=== PATIENT | female | born 1965 | race African-American/Black ===

== ENCOUNTER 2018-02-12 14:11 | Emergency (ER) | payer MEDICAID ==
[~2018-02-12] VITALS: Ht 167.6 cm; Wt 150.0 kg
[~2018-02-12 14:11] MED LIST: FURO40TA5 PO; LISI-186 PO; METF500T4 PO; METO25TA6 PO; SIMV20TA6 PO
[2018-02-12] MEDS ORDERED: KETOROLAC 60MG/2ML VIAL IM STA (14:32)
[2018-02-12 15:19] LABS: CLARITY URINE CLEAR (CLEAR); COLOR URINE YELLOW (YELLOW); KETONES URINE TRACE (NEGATIVE); LEUKOCYTE ESTERASE URINE TRACE (NEGATIVE); NITRITE URINE NEGATIVE (NEGATIVE); OCCULT BLOOD URINE NEGATIVE (NEGATIVE); PH URINE 5.5 (4.5-8.0); PROTEIN URINE 2+ (NEGATIVE); SPECIFIC GRAVITY URINE 1.018 (1.005-1.030)
[2018-02-12 18:40] VITALS: BP 128/85
== END 2018-02-12 18:59 | disposition home or self-care (01) ==
LOC: ER 14:27
DX: N12 Tubulo-interstitial nephritis, not specified as acute or chronic (principal); I50.9 Heart failure, unspecified; E11.9 Type 2 diabetes mellitus without complications; J45.909 Unspecified asthma, uncomplicated; Z90.49 Acquired absence of other specified parts of digestive tract; Z98.890 Other specified postprocedural states
CPT/HCPCS: 71045; 74176; 81003; 81025; 96372; 99285; J1885; Z7610

== ENCOUNTER 2018-11-09 18:59 | Inpatient (IN) | payer MEDICAID ==
[~2018-11-09] VITALS: Ht 167.6 cm; Wt 152.9 kg
[~2018-11-09 18:59] MED LIST changes: +METF-414 PO; -METF500T4 PO
[2018-11-09] MEDS ORDERED: METHYLPREDNISOLONE SOD SUCC 125 MG/2 ML VIAL IV STA (19:08)
[2018-11-09] MEDS ORDERED: ALBUTEROL (0.083%) 2.5MG/3ML NEB HHN STA (19:08)
[2018-11-09] MEDS ORDERED: MAGNESIUM 2 G PREMIX 50 ML IV STA (19:08)
[2018-11-09] MEDS ORDERED: IPRATROPIUM BROMIDE (0.02%) 0.5MG/2.5ML NEB HHN STA (19:08)
[2018-11-09] MEDS ORDERED: METHYLPREDNISOLONE SOD SUCC 125 MG/2 ML VIAL ONE (19:15)
[2018-11-09] MEDS ORDERED: MAGNESIUM 1 G PREMIX 100 ML IV ONE ×2 (19:18→21:45)
[2018-11-09] MEDS ORDERED: FUROSEMIDE 20MG/2ML VIAL IVP ONE (20:00)
[2018-11-09 20:35] LABS: BASOPHILS % 0.5 % (0.0-2.0); EOSINOPHILS % 1.2 % (0.0-5.0); HEMATOCRIT. 46.7 % (36.0-48.0); HEMOGLOBIN. 15.2 g/dL (12.0-16.0); LYMPHOCYTES % 21.2 % (20.0-50.0); MEAN CORPUSCULAR HEMOGLOBIN 29.1 pg (28.0-32.0); MEAN CORPUSCULAR VOLUME 88.9 fL (81.0-99.0); MONOCYTES % 8.1 % (2.0-8.0); PLATELET 182 x1000/uL (130-400); RED BLOOD CELL COUNT 5.25 mill/uL (4.2-5.4); RED CELL DISTRIBUTION WIDTH 17.1 % (11.6-14.6)
[2018-11-09 20:39] LABS: CHLORIDE 102 mEq/L (98-107)
[2018-11-09 20:40] LABS: BG BASE EXCESS 5.1 mmol/L (-2.0-2.0); BG BILEVEL POS AIRWAY PRESSURE 15/5; BG CARBOXYHEMOGLOBIN 5.9 % (0.5-1.5); BG DEOXYHEMOGLOBIN 4.4 % (0.0-5.0); BG FRACTION INSPIRED OXYGEN 40; BG METHEMOGLOBIN 0.4 % (0.0-1.5); BG OXYGEN SATURATION 95.3 % (92.0-98.5); BG OXYHEMOGLOBIN 89.3 % (94.0-97.0); BG PH 7.245 (7.350-7.450); BG PO2 86.5 mmHg (75.0-100.0); BG SAMPLE SITE RIGHT RADIAL; BG TOTAL HEMOGLOBIN 15.7 g/dL (12.0-18.0); BG VENT MODE MASK - BIPAP; BG VENT RATE 14 set
[2018-11-09 20:41] LABS: INR 1.1; PARTIAL THROMBOPLASTIN TIME 27.4 sec (23.4-31.0); PROTHROMBIN TIME 10.8 sec (9.1-11.1)
[2018-11-09 22:28] LABS: CLARITY URINE CLEAR (CLEAR); COLOR URINE YELLOW (YELLOW); KETONES URINE NEGATIVE (NEGATIVE); LEUKOCYTE ESTERASE URINE NEGATIVE (NEGATIVE); NITRITE URINE NEGATIVE (NEGATIVE); OCCULT BLOOD URINE NEGATIVE (NEGATIVE); PH URINE 5.5 (4.5-8.0); PROTEIN URINE 2+ (NEGATIVE); SPECIFIC GRAVITY URINE 1.008 (1.005-1.030); UROBILINOGEN URINE 0.2 E.U./dL (0.2-1.0)
[2018-11-09 22:38] LABS: BG BASE EXCESS 4.8 mmol/L (-2.0-2.0); BG BILEVEL POS AIRWAY PRESSURE 18/5; BG CARBOXYHEMOGLOBIN 5.1 % (0.5-1.5); BG DEOXYHEMOGLOBIN 6.3 % (0.0-5.0); BG FRACTION INSPIRED OXYGEN 40; BG HCO3 ACT 36.2 mmol/L (22.0-26.0); BG METHEMOGLOBIN 0.3 % (0.0-1.5); BG OXYGEN SATURATION 93.3 % (92.0-98.5); BG OXYHEMOGLOBIN 88.3 % (94.0-97.0); BG PCO2 86.5 mmHg (35.0-45.0); BG PH 7.239 (7.350-7.450); BG PO2 74.9 mmHg (75.0-100.0); BG SAMPLE SITE RIGHT RADIAL; BG TOTAL HEMOGLOBIN 16.6 g/dL (12.0-18.0); BG VENT MODE MASK - BIPAP; BG VENT RATE 14 set
[2018-11-10 01:45] LABS: BG BASE EXCESS 2.8 mmol/L (-2.0-2.0); BG BILEVEL POS AIRWAY PRESSURE 18/5; BG CARBOXYHEMOGLOBIN 4.2 % (0.5-1.5); BG DEOXYHEMOGLOBIN 4.1 % (0.0-5.0); BG FRACTION INSPIRED OXYGEN 40; BG HCO3 ACT 33.2 mmol/L (22.0-26.0); BG METHEMOGLOBIN 0.2 % (0.0-1.5); BG OXYGEN SATURATION 95.7 % (92.0-98.5); BG OXYHEMOGLOBIN 91.5 % (94.0-97.0); BG PCO2 77.9 mmHg (35.0-45.0); BG PH 7.247 (7.350-7.450); BG PO2 88.6 mmHg (75.0-100.0); BG SAMPLE SITE RIGHT RADIAL; BG TOTAL HEMOGLOBIN 16.4 g/dL (12.0-18.0); BG VENT MODE MASK - BIPAP; BG VENT RATE 20 set
[2018-11-10] MEDS ORDERED: IPRATROPIUM/ALBUTEROL 0.5-3(2.5)MG/3ML NEB HHN PRN (08:30)
[2018-11-10] MEDS: FUROSEMIDE 20MG/2ML VIAL IVP SCH ×2 (09:00→12:00)
[2018-11-10] MEDS ORDERED: METHYLPREDNISOLONE SOD SUCC 40 MG/ML VIAL IV SCH (10:00)
[2018-11-10] MEDS: METHYLPREDNISOLONE SOD SUCC 125 MG/2 ML VIAL IV SCH ×2 (10:00→18:53)
[2018-11-10] MEDS ORDERED: IPRATROPIUM/ALBUTEROL 0.5-3(2.5)MG/3ML NEB HHN SCH (12:00)
[2018-11-10] MEDS ORDERED: DEXTROSE 50% WATER 50ML SYRINGE IV PRN (13:45)
[2018-11-10] MEDS ORDERED: CLONIDINE 0.1MG TABLET PO PRN (13:45)
[2018-11-10] MEDS: LOSARTAN POTASSIUM 50 MG TABLET PO SCH (15:21)
[2018-11-10 16:59] LABS: T4 FREE 0.92 ng/dL (0.76-1.46)
[2018-11-10] MEDS: BLOOD SUGAR DIAGNOSTIC STRIP TEST SCH ×2 (20:34→23:00)
[2018-11-10] MEDS: INSULIN LISPRO 100 UNITS/ML SUBCUT SCH ×2 (21:30→23:10)
[2018-11-10 22:00] VITALS: BP 141/79
[2018-11-10] MEDS ORDERED: HYDROCODONE/ACETAMINOPHEN 5/325MG TABLET PO PRN (23:15)
[2018-11-10] MEDS ORDERED: ZOLPIDEM TARTRATE 5MG TABLET PO PRN (23:15)
[2018-11-10 23:32] VITALS: BP 141/79
[2018-11-10] MEDS: ENOXAPARIN 30MG/0.3ML SYR SUBCUT SCH (23:39)
[2018-11-11] VITALS (10 sets, daily range): BP systolic 128–160; BP diastolic 69–97
[2018-11-11] MEDS: METHYLPREDNISOLONE SOD SUCC 125 MG/2 ML VIAL IV SCH ×2 (01:25→10:34)
[2018-11-11] MEDS: BLOOD SUGAR DIAGNOSTIC STRIP TEST SCH ×2 (06:18→11:50)
[2018-11-11 06:50] LABS: CHLORIDE 103 mEq/L (98-107)
[2018-11-11 07:51] LABS: HEMATOCRIT. 47.5 % (36.0-48.0); HEMOGLOBIN. 15.2 g/dL (12.0-16.0); MEAN CORPUSCULAR HEMOGLOBIN 28.6 pg (28.0-32.0); MEAN CORPUSCULAR VOLUME 89.4 fL (81.0-99.0); MEAN PLATELET VOLUME 9.8 fl (7.4-10.4); PLATELET 211 x1000/uL (130-400); RED BLOOD CELL COUNT 5.32 mill/uL (4.2-5.4); RED CELL DISTRIBUTION WIDTH 17.4 % (11.6-14.6)
[2018-11-11] MEDS: LOSARTAN POTASSIUM 50 MG TABLET PO SCH (08:20)
[2018-11-11] MEDS: ENOXAPARIN 30MG/0.3ML SYR SUBCUT SCH (08:20)
[2018-11-11] MEDS: INSULIN LISPRO 100 UNITS/ML SUBCUT SCH ×2 (08:21→12:29)
[2018-11-11] MEDS ORDERED: NICOTINE 21MG PATCH TD SCH (09:00)
[2018-11-11 10:22] LABS: PLATELET ESTIMATE NORMAL
[2018-11-11 11:25] LABS: BG BASE EXCESS 8.2 mmol/L (-2.0-2.0); BG CARBOXYHEMOGLOBIN 1.1 % (0.5-1.5); BG DEOXYHEMOGLOBIN 4.4 % (0.0-5.0); BG FRACTION INSPIRED OXYGEN 28; BG HCO3 ACT 36.8 mmol/L (22.0-26.0); BG METHEMOGLOBIN 0.1 % (0.0-1.5); BG OXYGEN SATURATION 95.5 % (92.0-98.5); BG OXYHEMOGLOBIN 94.4 % (94.0-97.0); BG PCO2 67.8 mmHg (35.0-45.0); BG PH 7.352 (7.350-7.450); BG PO2 81.7 mmHg (75.0-100.0); BG SAMPLE SITE RIGHT RADIAL; BG TOTAL HEMOGLOBIN 15.8 g/dL (12.0-18.0); BG VENT MODE MASK - VENTI
[2018-11-11] MEDS ORDERED: PROMETHAZINE/DEXTROMETHORPHAN 6.25-15MG/5ML BOTTLE 120ML PO PRN (14:15)
[2018-11-11] MEDS ORDERED: FLUTICASONE PROPIONATE 50MCG/SPRAY BOTTLE BOTHNSTRLS SCH (21:00)
== END 2018-11-11 16:45 | disposition home or self-care (01) | DRG 133 ==
LOC: ER 18:59 → EDBEDREQ 19:22 → EDBEDREQTM 20:39 → EDBEDREQSVC 23:08 → CANBEDREQ 11-10 10:01 → EDBEDREQSVC 11-10 14:39 → ENRESERV 11-10 17:35 → CANRESERV 11-10 17:35 → EDBEDREQSVC 11-10 18:38 → 3WST 11-10 20:18 → CANRESERV 11-10 21:30 → ENRESERV 11-10 21:30
PROVIDERS: ADMIT Internal Medicine; ATTEND Internal Medicine
PROC: 5A09357 Assistance with Respiratory Ventilation, Less than 24 Consecutive Hours, Continuous Positive Airway Pressure (ICD-10-PCS; principal; 2018-11-09)
DX: J96.21 Acute and chronic respiratory failure with hypoxia (principal); I50.43 Acute on chronic combined systolic (congestive) and diastolic (congestive) heart failure; E87.2 Acidosis; E44.1 Mild protein-calorie malnutrition; E66.01 Morbid (severe) obesity due to excess calories; I07.1 Rheumatic tricuspid insufficiency; I27.20 Pulmonary hypertension, unspecified; J44.1 Chronic obstructive pulmonary disease with (acute) exacerbation; E11.9 Type 2 diabetes mellitus without complications; I11.0 Hypertensive heart disease with heart failure; E89.0 Postprocedural hypothyroidism; F17.210 Nicotine dependence, cigarettes, uncomplicated; I25.10 Atherosclerotic heart disease of native coronary artery without angina pectoris; I42.9 Cardiomyopathy, unspecified; J96.22 Acute and chronic respiratory failure with hypercapnia; K80.20 Calculus of gallbladder without cholecystitis without obstruction; Z71.3 Dietary counseling and surveillance; J45.901 Unspecified asthma with (acute) exacerbation; Z68.43 Body mass index [BMI] 50.0-59.9, adult; Z79.4 Long term (current) use of insulin
CPT/HCPCS: 36415; 36600; 71045; 80048; 80061; 82375; 82805; 82962; 83605; 83880; 84145; 84439; 84443; 84481; 84484; 87077; 93005; 93306; 94640; 94660; 96365; 96375; 96376; 99291; J1650; J1815; J1940; J2930; J3475; J7611; J7620

== ENCOUNTER 2019-03-04 20:24 | Emergency (ER) | payer MEDICAID ==
[~2019-03-04] VITALS: Ht 170.2 cm; Wt 110.0 kg
[2019-03-04] MEDS: ALBUTEROL (0.083%) 2.5MG/3ML NEB HHN SCH (01:05)
[2019-03-04] MEDS ORDERED: IPRATROPIUM BROMIDE (0.02%) 0.5MG/2.5ML NEB HHN STA (22:17)
[2019-03-04] MEDS ORDERED: METHYLPREDNISOLONE SOD SUCC 125 MG/2 ML VIAL IV STA (22:17)
[2019-03-04] MEDS ORDERED: FUROSEMIDE 40MG/4ML VIAL IV ONE (22:30)
[2019-03-04] MEDS ORDERED: ASPIRIN 81MG TABLET PO ONE (22:30)
[2019-03-04] MEDS ORDERED: MAGNESIUM 2 G PREMIX 50 ML IV ONE (22:30)
[2019-03-04 23:47] LABS: BASOPHILS % 0.7 % (0.0-2.0); EOSINOPHILS % 1.2 % (0.0-5.0); HEMATOCRIT. 50.4 % (36.0-48.0); HEMOGLOBIN. 16.5 g/dL (12.0-16.0); LYMPHOCYTES % 27.7 % (20.0-50.0); MEAN CORPUSCULAR HEMOGLOBIN 28.5 pg (28.0-32.0); MEAN CORPUSCULAR VOLUME 87.2 fL (81.0-99.0); MEAN PLATELET VOLUME 9.2 fl (7.4-10.4); MONOCYTES % 9.5 % (2.0-8.0); NEUTROPHILS % 60.9 % (40.0-76.0); PLATELET 185 x1000/uL (130-400); RED BLOOD CELL COUNT 5.78 mill/uL (4.2-5.4); RED CELL DISTRIBUTION WIDTH 16.7 % (11.6-14.6)
[2019-03-04 23:52] LABS: CHLORIDE 102 mEq/L (98-107)
[2019-03-05] MEDS: ALBUTEROL (0.083%) 2.5MG/3ML NEB HHN SCH (00:05)
[2019-03-05] MEDS ORDERED: METOPROLOL TARTRATE 25MG TABLET PO ONE (02:00)
[2019-03-05 02:23] VITALS: BP 182/90
== END 2019-03-05 02:35 | disposition home or self-care (01) ==
LOC: ER 20:24
DX: J44.1 Chronic obstructive pulmonary disease with (acute) exacerbation (principal); I10 Essential (primary) hypertension; I11.0 Hypertensive heart disease with heart failure; I50.9 Heart failure, unspecified; E11.9 Type 2 diabetes mellitus without complications; F17.200 Nicotine dependence, unspecified, uncomplicated; Z98.890 Other specified postprocedural states; Z90.49 Acquired absence of other specified parts of digestive tract; Z79.899 Other long term (current) drug therapy
CPT/HCPCS: 36415; 71045; 80053; 82962; 83880; 84484; 85025; 93005; 94640; 96365; 96366; 96375; 99285; J1940; J2930; J3475; J7611; Z7610

== ENCOUNTER 2019-09-03 10:47 | Emergency (ER) | payer MEDICAID ==
[~2019-09-03] VITALS: Ht 162.6 cm; Wt 136.0 kg
[2019-09-03 13:25] LABS: CLARITY URINE CLEAR (CLEAR); COLOR URINE YELLOW (YELLOW); KETONES URINE NEGATIVE (NEGATIVE); LEUKOCYTE ESTERASE URINE 1+ (NEGATIVE); NITRITE URINE NEGATIVE (NEGATIVE); OCCULT BLOOD URINE NEGATIVE (NEGATIVE); PH URINE 6.5 (4.5-8.0); PROTEIN URINE NEGATIVE (NEGATIVE); SPECIFIC GRAVITY URINE 1.011 (1.005-1.030); UROBILINOGEN URINE 0.2 E.U./dL (0.2-1.0)
[2019-09-03 13:35] LABS: BASOPHILS % 1.2 % (0.0-2.0); EOSINOPHILS % 1.5 % (0.0-5.0); HEMOGLOBIN. 13.5 g/dL (12.0-16.0); MEAN CORPUSCULAR HEMOGLOBIN 29.7 pg (28.0-32.0); MEAN CORPUSCULAR VOLUME 88.1 fL (81.0-99.0); MEAN PLATELET VOLUME 8.7 fl (7.4-10.4); MONOCYTES % 13.4 % (2.0-8.0); NEUTROPHILS % 66.9 % (40.0-76.0); PLATELET 193 x1000/uL (130-400); RED BLOOD CELL COUNT 4.53 mill/uL (4.2-5.4); RED CELL DISTRIBUTION WIDTH 14.4 % (11.6-14.6)
[2019-09-03 13:42] LABS: CHLORIDE 105 mEq/L (98-107)
[2019-09-03 13:45] LABS: PROTHROMBIN TIME 10.1 sec (9.6-11.0)
[2019-09-03 13:46] LABS: ETHANOL BLOOD < 10 mg/dL
[2019-09-03] MEDS ORDERED: SODIUM CHLORIDE 0.9% 500 ML IV ONE (14:45)
[2019-09-03] MEDS ORDERED: KETOROLAC 30MG/ML VIAL IV NR (14:45)
[2019-09-03] MEDS ORDERED: ONDANSETRON HCL 4MG/2ML INJ IV NR (14:45)
[2019-09-03 16:22] LABS: *AMPHETAMINES SCREEN URINE NEGATIVE (NEGATIVE); *BARBITURATES SCREEN URINE NEGATIVE (NEGATIVE); *BENZODIAZEPINES SCREEN URINE NEGATIVE (NEGATIVE); *COCAINE SCREEN URINE NEGATIVE (NEGATIVE); METHADONE URINE SCREEN NEGATIVE (NEGATIVE)
[2019-09-03 16:23] LABS: CANNABINOID URINE SCREEN NEGATIVE (NEGATIVE); OPIATES URINE SCREEN NEGATIVE (NEGATIVE); PHENCYCLIDINE URINE SCREEN NEGATIVE (NEGATIVE)
[2019-09-03 17:15] VITALS: BP 131/61
== END 2019-09-03 17:00 | disposition home or self-care (01) ==
LOC: ER 10:47
DX: R10.9 Unspecified abdominal pain (principal); K59.00 Constipation, unspecified; J06.9 Acute upper respiratory infection, unspecified; E11.9 Type 2 diabetes mellitus without complications; I11.0 Hypertensive heart disease with heart failure; I50.9 Heart failure, unspecified; J44.9 Chronic obstructive pulmonary disease, unspecified; F17.200 Nicotine dependence, unspecified, uncomplicated; Z79.899 Other long term (current) drug therapy; Z90.49 Acquired absence of other specified parts of digestive tract
CPT/HCPCS: 36415; 71045; 74176; 80053; 80305; 80320; 81003; 83690; 83880; 84484; 85025; 85610; 96374; 96375; 99284; J1885; J2405; J7040; G0480

== ENCOUNTER 2019-11-11 12:00 | Emergency (ER) | payer MEDICAID, OTHER ==
[~2019-11-11] VITALS: Ht 170.2 cm; Wt 136.0 kg
[~2019-11-11 12:00] MED LIST changes: +SIMV-43 PO; -SIMV20TA6 PO
[2019-11-11] MEDS ORDERED: ACETAMINOPHEN 325MG TABLET PO ONE (12:45)
[2019-11-11] MEDS ORDERED: IPRATROPIUM BROMIDE (0.02%) 0.5MG/2.5ML NEB HHN STA (13:03)
[2019-11-11] MEDS ORDERED: PREDNISONE 20MG TABLET PO STA (13:03)
[2019-11-11] MEDS ORDERED: ALBUTEROL (0.083%) 2.5MG/3ML NEB HHN STA (13:03)
[2019-11-11 14:19] VITALS: BP 109/42
== END 2019-11-11 14:24 | disposition home or self-care (01) ==
LOC: ER 12:00
DX: J44.1 Chronic obstructive pulmonary disease with (acute) exacerbation (principal); B34.9 Viral infection, unspecified; I11.0 Hypertensive heart disease with heart failure; I50.9 Heart failure, unspecified; Z90.49 Acquired absence of other specified parts of digestive tract
CPT/HCPCS: 71045; 81025; 94640; 99283; J7512; J7610; Z7610

== ENCOUNTER 2021-03-27 19:16 | Inpatient (IN) | payer MEDICAID, OTHER ==
[~2021-03-27] VITALS: Ht 167.6 cm; Wt 149.7 kg
[~2021-03-27 19:16] MED LIST changes: +FURO80TA87 MT; +POTA20TA82 MT
[2021-03-27] MEDS ORDERED: ALBUTEROL (0.083%) 2.5MG/3ML NEB HHN STA (19:38)
[2021-03-27] MEDS ORDERED: PREDNISONE 20MG TABLET PO STA (19:38)
[2021-03-27] MEDS ORDERED: IPRATROPIUM BROMIDE (0.02%) 0.5MG/2.5ML NEB HHN STA (19:38)
[2021-03-27] MEDS ORDERED: FUROSEMIDE 40MG/4ML VIAL IVP ONE (19:45)
[2021-03-27 21:55] LABS: EOSINOPHILS % 1.1 % (0.0-5.0); HEMATOCRIT. 53.7 % (36.0-48.0); HEMOGLOBIN. 17.6 g/dL (12.0-16.0); LYMPHOCYTES % 29.5 % (20.0-50.0); MEAN CORPUSCULAR HEMOGLOBIN 29.1 pg (28.0-32.0); MEAN CORPUSCULAR VOLUME 88.7 fL (81.0-99.0); MEAN PLATELET VOLUME 8.9 fl (7.4-10.4); MONOCYTES % 11.2 % (2.0-8.0); NEUTROPHILS % 57.2 % (40.0-76.0); PLATELET 155 x1000/uL (130-400); RED BLOOD CELL COUNT 6.05 mill/uL (4.2-5.4); RED CELL DISTRIBUTION WIDTH 18.3 % (11.6-14.6)
[2021-03-27 22:02] LABS: CHLORIDE 101 mEq/L (98-107)
[2021-03-28] VITALS (7 sets, daily range): BP systolic 115–136; BP diastolic 61–91
[2021-03-28] MEDS ORDERED: CARVEDILOL 3.125 MG TABLET PO SCH (09:00)
[2021-03-28] MEDS ORDERED: LISINOPRIL 2.5MG TABLET PO SCH (09:00)
[2021-03-28] MEDS: HYDROCODONE/ACETAMINOPHEN 5/325MG TABLET PO PRN ×2 (09:36→18:18)
[2021-03-28] MEDS ORDERED: FUROSEMIDE 40MG/4ML VIAL IVP SCH (10:15)
[2021-03-28 11:47] LABS: *AMPHETAMINES SCREEN URINE NEGATIVE (NEGATIVE); *BARBITURATES SCREEN URINE NEGATIVE (NEGATIVE); *BENZODIAZEPINES SCREEN URINE NEGATIVE (NEGATIVE); *COCAINE SCREEN URINE NEGATIVE (NEGATIVE); METHADONE URINE SCREEN NEGATIVE (NEGATIVE)
[2021-03-28 11:48] LABS: CANNABINOID URINE SCREEN NEGATIVE (NEGATIVE); OPIATES URINE SCREEN NEGATIVE (NEGATIVE); PHENCYCLIDINE URINE SCREEN NEGATIVE (NEGATIVE)
[2021-03-28] MEDS: DILTIAZEM HCL 60MG TABLET PO SCH ×2 (14:52→21:31)
[2021-03-28] MEDS: FUROSEMIDE 40MG/4ML VIAL IVP SCH (18:18)
[2021-03-29] VITALS (58 sets, daily range): BP systolic 85–174; BP diastolic 59–109
[2021-03-29] MEDS: DILTIAZEM HCL 60MG TABLET PO SCH ×3 (05:32→22:22)
[2021-03-29] MEDS: IPRATROPIUM/ALBUTEROL 0.5-3(2.5)MG/3ML NEB HHN SCH ×4 (05:35→20:10)
[2021-03-29 06:40] LABS: CHLORIDE 101 mEq/L (98-107)
[2021-03-29] MEDS ORDERED: IPRATROPIUM/ALBUTEROL 0.5-3(2.5)MG/3ML NEB HHN PRN (08:00)
[2021-03-29] MEDS ORDERED: VECURONIUM BROMIDE 10 MG/VIAL IV ONE (08:22)
[2021-03-29] MEDS ORDERED: ETOMIDATE 2MG/ML 10ML VIAL IV ONE (08:22)
[2021-03-29] MEDS ORDERED: SODIUM CHLORIDE 0.9% 10ML VIAL ONE (08:22)
[2021-03-29] MEDS: BUDESONIDE 0.5MG/2ML NEB HHN SCH ×2 (08:49→20:10)
[2021-03-29] MEDS: FUROSEMIDE 40MG/4ML VIAL IVP SCH ×2 (09:16→17:07)
[2021-03-29 09:27] LABS: BG BASE EXCESS 4.4 mmol/L (-2.0-2.0); BG DEOXYHEMOGLOBIN 20.4 % (0.0-5.0); BG FRACTION INSPIRED OXYGEN 50; BG HCO3 ACT 43.2 mmol/L (22.0-26.0); BG METHEMOGLOBIN 0.4 % (0.0-1.5); BG OXYGEN SATURATION 78.9 % (92.0-98.5); BG OXYHEMOGLOBIN 76.2 % (94.0-97.0); BG PCO2 159.6 mmHg (35.0-45.0); BG PO2 52.2 mmHg (75.0-100.0); BG SAMPLE SITE RIGHT RADIAL; BG TOTAL HEMOGLOBIN 19.3 g/dL (12.0-18.0); BG VENT MODE MASK - BIPAP
[2021-03-29 09:46] LABS: BG BASE EXCESS 6.1 mmol/L (-2.0-2.0); BG CARBOXYHEMOGLOBIN 2.2 % (0.5-1.5); BG DEOXYHEMOGLOBIN 1.8 % (0.0-5.0); BG FRACTION INSPIRED OXYGEN 100; BG HCO3 ACT 44.8 mmol/L (22.0-26.0); BG METHEMOGLOBIN 0.7 % (0.0-1.5); BG OXYGEN SATURATION 98.1 % (92.0-98.5); BG OXYHEMOGLOBIN 95.3 % (94.0-97.0); BG PCO2 156.4 mmHg (35.0-45.0); BG PH 7.075 (7.350-7.450); BG SAMPLE SITE RIGHT RADIAL; BG TOTAL HEMOGLOBIN 19.5 g/dL (12.0-18.0); BG VENT MODE MASK - BIPAP
[2021-03-29] MEDS: METHYLPREDNISOLONE SOD SUCC 40 MG/ML VIAL IV SCH ×2 (10:44→17:07)
[2021-03-29] MEDS: PROPOFOL 10MG/ML 100ML 100 ML IV PRN ×4 (11:25→21:13)
[2021-03-29] MEDS ORDERED: NOREPINEPHRINE 8MG/250ML PMX 250 ML IV PRN (11:30)
[2021-03-29 11:57] LABS: INR 1.1; PROTHROMBIN TIME 11.5 sec (9.6-11.0)
[2021-03-29 12:02] LABS: BG BASE EXCESS 8.1 mmol/L (-2.0-2.0); BG CARBOXYHEMOGLOBIN 2.4 % (0.5-1.5); BG DEOXYHEMOGLOBIN 10.5 % (0.0-5.0); BG FRACTION INSPIRED OXYGEN 40; BG HCO3 ACT 37.2 mmol/L (22.0-26.0); BG METHEMOGLOBIN 0.3 % (0.0-1.5); BG OXYGEN SATURATION 89.2 % (92.0-98.5); BG OXYHEMOGLOBIN 86.8 % (94.0-97.0); BG PCO2 68.8 mmHg (35.0-45.0); BG PH 7.351 (7.350-7.450); BG PO2 51.4 mmHg (75.0-100.0); BG SAMPLE SITE RIGHT RADIAL; BG VENT MODE VENT - AC
[2021-03-29] MEDS ORDERED: NOREPINEPHRINE 8 MG in DEXTROSE 5% WATER 250 ML IV PRN (12:30)
[2021-03-29] MEDS: FENTANYL CITRATE/PF 2,500 MCG in SODIUM CHLORIDE 0.9% 200 ML IV PRN (17:33)
[2021-03-30] VITALS (91 sets, daily range): BP systolic 92–141; BP diastolic 42–88
[2021-03-30] MEDS: IPRATROPIUM/ALBUTEROL 0.5-3(2.5)MG/3ML NEB HHN SCH ×7 (00:14→20:02)
[2021-03-30] MEDS: PROPOFOL 10MG/ML 100ML 100 ML IV PRN ×9 (01:08→23:58)
[2021-03-30] MEDS: METHYLPREDNISOLONE SOD SUCC 40 MG/ML VIAL IV SCH ×2 (03:06→08:14)
[2021-03-30 04:51] LABS: BASOPHILS % 0.1 % (0.0-2.0); HEMATOCRIT. 51.9 % (36.0-48.0); LYMPHOCYTES % 8.1 % (20.0-50.0); MEAN CORPUSCULAR VOLUME 85.8 fL (81.0-99.0); MEAN PLATELET VOLUME 9.7 fl (7.4-10.4); MONOCYTES % 8.7 % (2.0-8.0); NEUTROPHILS % 83.1 % (40.0-76.0); PLATELET 154 x1000/uL (130-400); RED BLOOD CELL COUNT 6.05 mill/uL (4.2-5.4); RED CELL DISTRIBUTION WIDTH 17.2 % (11.6-14.6)
[2021-03-30 04:52] LABS: CHLORIDE 102 mEq/L (98-107)
[2021-03-30] MEDS: DILTIAZEM HCL 60MG TABLET PO SCH ×3 (05:53→21:38)
[2021-03-30] MEDS: FUROSEMIDE 40MG/4ML VIAL IVP SCH ×2 (08:14→17:07)
[2021-03-30] MEDS: BUDESONIDE 0.5MG/2ML NEB HHN SCH ×2 (08:22→20:02)
[2021-03-30 08:32] LABS: BG CARBOXYHEMOGLOBIN 0.6 % (0.5-1.5); BG DEOXYHEMOGLOBIN 10.2 % (0.0-5.0); BG FRACTION INSPIRED OXYGEN 70; BG HCO3 ACT 35.3 mmol/L (22.0-26.0); BG METHEMOGLOBIN 0.3 % (0.0-1.5); BG OXYGEN SATURATION 89.7 % (92.0-98.5); BG OXYHEMOGLOBIN 88.9 % (94.0-97.0); BG PCO2 36.2 mmHg (35.0-45.0); BG PH 7.607 (7.350-7.450); BG PO2 48.4 mmHg (75.0-100.0); BG SAMPLE SITE RIGHT RADIAL; BG TOTAL HEMOGLOBIN 18.1 g/dL (12.0-18.0); BG VENT MODE VENT - AC
[2021-03-30 09:58] LABS: BG BASE EXCESS 10.7 mmol/L (-2.0-2.0); BG CARBOXYHEMOGLOBIN 0.7 % (0.5-1.5); BG DEOXYHEMOGLOBIN 10.7 % (0.0-5.0); BG HCO3 ACT 34.8 mmol/L (22.0-26.0); BG METHEMOGLOBIN 0.2 % (0.0-1.5); BG OXYGEN SATURATION 89.2 % (92.0-98.5); BG OXYHEMOGLOBIN 88.4 % (94.0-97.0); BG PCO2 42.8 mmHg (35.0-45.0); BG PH 7.528 (7.350-7.450); BG PO2 51.4 mmHg (75.0-100.0); BG SAMPLE SITE RIGHT RADIAL; BG VENT MODE VENT - AC
[2021-03-30] MEDS: ACETYLCYSTEINE 100MG/ML 10% VIAL 4ML INH SCH (16:19)
[2021-03-30] MEDS: METHYLPREDNISOLONE SOD SUCC 125 MG/2 ML VIAL IV SCH ×2 (17:08→23:50)
[2021-03-30] MEDS: PANTOPRAZOLE SODIUM 40 MG/VIAL IV SCH (21:37)
[2021-03-31] VITALS (99 sets, daily range): BP systolic 58–144; BP diastolic 37–121
[2021-03-31] MEDS: IPRATROPIUM/ALBUTEROL 0.5-3(2.5)MG/3ML NEB HHN SCH ×5 (00:19→20:27)
[2021-03-31] MEDS: ACETYLCYSTEINE 100MG/ML 10% VIAL 4ML INH SCH (00:19)
[2021-03-31 06:03] LABS: HEMATOCRIT. 53.3 % (36.0-48.0); HEMOGLOBIN. 17.3 g/dL (12.0-16.0); MEAN CORPUSCULAR HEMOGLOBIN 27.7 pg (28.0-32.0); MEAN CORPUSCULAR VOLUME 85.6 fL (81.0-99.0); MEAN PLATELET VOLUME 9.2 fl (7.4-10.4); PLATELET 146 x1000/uL (130-400); RED BLOOD CELL COUNT 6.23 mill/uL (4.2-5.4); RED CELL DISTRIBUTION WIDTH 17.8 % (11.6-14.6)
[2021-03-31 06:04] LABS: CHLORIDE 101 mEq/L (98-107)
[2021-03-31] MEDS: DILTIAZEM HCL 60MG TABLET PO SCH ×2 (06:07→13:51)
[2021-03-31] MEDS: METHYLPREDNISOLONE SOD SUCC 125 MG/2 ML VIAL IV SCH ×4 (06:08→23:33)
[2021-03-31] MEDS: PROPOFOL 10MG/ML 100ML 100 ML IV PRN ×6 (06:08→23:25)
[2021-03-31] MEDS: BUDESONIDE 0.5MG/2ML NEB HHN SCH ×2 (07:55→20:27)
[2021-03-31] MEDS ORDERED: INSULIN LISPRO 100 UNITS/ML SUBCUT SCH (08:20)
[2021-03-31] MEDS ORDERED: DEXTROSE 50% WATER 50ML SYRINGE IV PRN (08:30)
[2021-03-31] MEDS: FUROSEMIDE 40MG/4ML VIAL IVP SCH (08:40)
[2021-03-31] MEDS: PANTOPRAZOLE SODIUM 40 MG/VIAL IV SCH ×2 (08:40→20:35)
[2021-03-31 08:46] LABS: BG BASE EXCESS 10.6 mmol/L (-2.0-2.0); BG CARBOXYHEMOGLOBIN 0.5 % (0.5-1.5); BG DEOXYHEMOGLOBIN 12.5 % (0.0-5.0); BG FRACTION INSPIRED OXYGEN 40; BG HCO3 ACT 35.7 mmol/L (22.0-26.0); BG METHEMOGLOBIN 0.5 % (0.0-1.5); BG OXYGEN SATURATION 87.4 % (92.0-98.5); BG OXYHEMOGLOBIN 86.5 % (94.0-97.0); BG PH 7.499 (7.350-7.450); BG PO2 49.8 mmHg (75.0-100.0); BG SAMPLE SITE RIGHT RADIAL; BG TOTAL HEMOGLOBIN 18.4 g/dL (12.0-18.0); BG VENT MODE VENT - AC
[2021-03-31] MEDS ORDERED: POTASSIUM CHLORIDE 20MEQ/PACKET PO SCH (09:00)
[2021-03-31] MEDS: FENTANYL CITRATE/PF 2,500 MCG in SODIUM CHLORIDE 0.9% 200 ML IV PRN (10:36)
[2021-03-31 12:08] LABS: BG BASE EXCESS 9.2 mmol/L (-2.0-2.0); BG CARBOXYHEMOGLOBIN 0.2 % (0.5-1.5); BG DEOXYHEMOGLOBIN 10.9 % (0.0-5.0); BG FRACTION INSPIRED OXYGEN 50; BG HCO3 ACT 35.2 mmol/L (22.0-26.0); BG METHEMOGLOBIN 0.2 % (0.0-1.5); BG OXYGEN SATURATION 89.1 % (92.0-98.5); BG OXYHEMOGLOBIN 88.7 % (94.0-97.0); BG PH 7.457 (7.350-7.450); BG SAMPLE SITE RIGHT RADIAL; BG TOTAL HEMOGLOBIN 18.4 g/dL (12.0-18.0); BG VENT MODE VENT - AC
[2021-03-31] MEDS: BLOOD SUGAR DIAGNOSTIC STRIP TEST SCH ×3 (12:15→23:37)
[2021-03-31] MEDS: INSULIN LISPRO 100 UNITS/ML SUBCUT SCH ×3 (12:34→23:33)
[2021-03-31] MEDS: ENOXAPARIN 40MG/0.4ML SYR SUBCUT SCH ×2 (12:36→20:34)
[2021-03-31 13:33] LABS: PLATELET ESTIMATE NORMAL
[2021-04-01] VITALS (94 sets, daily range): BP systolic 101–149; BP diastolic 35–113
[2021-04-01] MEDS: IPRATROPIUM/ALBUTEROL 0.5-3(2.5)MG/3ML NEB HHN SCH ×7 (00:08→23:46)
[2021-04-01] MEDS: PROPOFOL 10MG/ML 100ML 100 ML IV PRN ×4 (02:59→12:20)
[2021-04-01] MEDS: METHYLPREDNISOLONE SOD SUCC 125 MG/2 ML VIAL IV SCH ×3 (05:53→17:20)
[2021-04-01] MEDS: INSULIN LISPRO 100 UNITS/ML SUBCUT SCH ×3 (05:56→17:21)
[2021-04-01] MEDS: BLOOD SUGAR DIAGNOSTIC STRIP TEST SCH ×3 (05:58→17:17)
[2021-04-01] MEDS: BUDESONIDE 0.5MG/2ML NEB HHN SCH (08:02)
[2021-04-01 08:35] LABS: BG BASE EXCESS 8.9 mmol/L (-2.0-2.0); BG CARBOXYHEMOGLOBIN 0.3 % (0.5-1.5); BG DEOXYHEMOGLOBIN 11.3 % (0.0-5.0); BG FRACTION INSPIRED OXYGEN 50; BG HCO3 ACT 33.2 mmol/L (22.0-26.0); BG METHEMOGLOBIN 0.4 % (0.0-1.5); BG OXYGEN SATURATION 88.6 % (92.0-98.5); BG PCO2 42.6 mmHg (35.0-45.0); BG PH 7.509 (7.350-7.450); BG PO2 53.4 mmHg (75.0-100.0); BG SAMPLE SITE RIGHT RADIAL; BG TOTAL HEMOGLOBIN 19.5 g/dL (12.0-18.0); BG VENT MODE VENT - AC
[2021-04-01 08:40] LABS: CHLORIDE 104 mEq/L (98-107)
[2021-04-01 08:45] LABS: HEMATOCRIT. 54.6 % (36.0-48.0); HEMOGLOBIN. 18.1 g/dL (12.0-16.0); MEAN CORPUSCULAR HEMOGLOBIN 28.7 pg (28.0-32.0); MEAN CORPUSCULAR VOLUME 86.4 fL (81.0-99.0); MEAN PLATELET VOLUME 9.4 fl (7.4-10.4); PLATELET 120 x1000/uL (130-400); RED BLOOD CELL COUNT 6.32 mill/uL (4.2-5.4); RED CELL DISTRIBUTION WIDTH 17.9 % (11.6-14.6)
[2021-04-01] MEDS: LACTULOSE 20G/30ML UDC PO PRN ×2 (09:12→15:28)
[2021-04-01] MEDS: ENOXAPARIN 40MG/0.4ML SYR SUBCUT SCH (09:12)
[2021-04-01] MEDS: PANTOPRAZOLE SODIUM 40 MG/VIAL IV SCH ×2 (09:12→21:43)
[2021-04-01] MEDS: FUROSEMIDE 40MG/4ML VIAL IVP SCH (09:12)
[2021-04-01] MEDS: AMLODIPINE 5MG TABLET PO SCH ×2 (09:14→16:56)
[2021-04-01] MEDS ORDERED: ALTEPLASE 2MG/VIAL ITC NR (10:30)
[2021-04-01] MEDS ORDERED: PROPOFOL 10MG/ML 100ML 100 ML IV PRN (13:00)
[2021-04-01 13:51] LABS: PLATELET ESTIMATE SLIGHTLY DECREASED
[2021-04-01] MEDS: MIDAZOLAM HCL 100 MG in SODIUM CHLORIDE 0.9% 80 ML IV PRN (18:01)
[2021-04-01] MEDS: FENTANYL CITRATE/PF 2,500 MCG in SODIUM CHLORIDE 0.9% 200 ML IV PRN (18:02)
[2021-04-01] MEDS: ENOXAPARIN 150MG/ML SYR SUBCUT SCH (21:43)
[2021-04-02] VITALS (100 sets, daily range): BP systolic 110–161; BP diastolic 32–121
[2021-04-02] MEDS: BLOOD SUGAR DIAGNOSTIC STRIP TEST SCH ×4 (00:41→17:14)
[2021-04-02] MEDS: INSULIN LISPRO 100 UNITS/ML SUBCUT SCH ×4 (00:49→17:23)
[2021-04-02] MEDS: METHYLPREDNISOLONE SOD SUCC 125 MG/2 ML VIAL IV SCH ×4 (00:51→17:22)
[2021-04-02] MEDS: MIDAZOLAM HCL 100 MG in SODIUM CHLORIDE 0.9% 80 ML IV PRN ×3 (01:26→23:44)
[2021-04-02] MEDS: IPRATROPIUM/ALBUTEROL 0.5-3(2.5)MG/3ML NEB HHN SCH ×5 (03:33→20:34)
[2021-04-02 05:35] LABS: HEMATOCRIT. 57.4 % (36.0-48.0); HEMOGLOBIN. 18.3 g/dL (12.0-16.0); MEAN CORPUSCULAR HEMOGLOBIN 27.8 pg (28.0-32.0); MEAN CORPUSCULAR VOLUME 87.3 fL (81.0-99.0); MEAN PLATELET VOLUME 9.7 fl (7.4-10.4); PLATELET 125 x1000/uL (130-400); RED BLOOD CELL COUNT 6.57 mill/uL (4.2-5.4); RED CELL DISTRIBUTION WIDTH 17.9 % (11.6-14.6)
[2021-04-02 05:42] LABS: CHLORIDE 105 mEq/L (98-107)
[2021-04-02] MEDS: PANTOPRAZOLE SODIUM 40 MG/VIAL IV SCH ×2 (08:19→21:41)
[2021-04-02] MEDS: FUROSEMIDE 40MG/4ML VIAL IVP SCH (08:19)
[2021-04-02] MEDS: AMLODIPINE 5MG TABLET PO SCH ×2 (08:19→17:22)
[2021-04-02] MEDS: LACTULOSE 20G/30ML UDC PO PRN (08:20)
[2021-04-02] MEDS: ENOXAPARIN 150MG/ML SYR SUBCUT SCH ×2 (08:20→21:47)
[2021-04-02 09:04] LABS: PLATELET ESTIMATE SLIGHTLY DECREASED
[2021-04-02] MEDS ORDERED: SORBITOL 70% SOLN 30ML PO NR (11:00)
[2021-04-02 11:59] LABS: BG BASE EXCESS 13.5 mmol/L (-2.0-2.0); BG DEOXYHEMOGLOBIN 12.2 % (0.0-5.0); BG FRACTION INSPIRED OXYGEN 60; BG HCO3 ACT 42.4 mmol/L (22.0-26.0); BG METHEMOGLOBIN 0.3 % (0.0-1.5); BG OXYGEN SATURATION 87.8 % (92.0-98.5); BG OXYHEMOGLOBIN 87.5 % (94.0-97.0); BG PCO2 65.4 mmHg (35.0-45.0); BG PO2 54.2 mmHg (75.0-100.0); BG TOTAL HEMOGLOBIN 19.9 g/dL (12.0-18.0); BG VENT MODE VENT - AC
[2021-04-02] MEDS: ACETYLCYSTEINE 100MG/ML 10% VIAL 4ML INH SCH (20:34)
[2021-04-02] MEDS: FENTANYL CITRATE/PF 2,500 MCG in SODIUM CHLORIDE 0.9% 200 ML IV PRN (23:44)
[2021-04-03] VITALS (75 sets, daily range): BP systolic 101–148; BP diastolic 70–99
[2021-04-03] MEDS: IPRATROPIUM/ALBUTEROL 0.5-3(2.5)MG/3ML NEB HHN SCH ×6 (00:14→20:27)
[2021-04-03] MEDS: INSULIN LISPRO 100 UNITS/ML SUBCUT SCH ×5 (00:47→23:08)
[2021-04-03] MEDS: METHYLPREDNISOLONE SOD SUCC 125 MG/2 ML VIAL IV SCH ×5 (00:48→23:07)
[2021-04-03 05:51] LABS: HEMATOCRIT. 58.3 % (36.0-48.0); HEMOGLOBIN. 18.8 g/dL (12.0-16.0); MEAN CORPUSCULAR HEMOGLOBIN 28.2 pg (28.0-32.0); MEAN CORPUSCULAR VOLUME 87.7 fL (81.0-99.0); MEAN PLATELET VOLUME 9.9 fl (7.4-10.4); PLATELET 119 x1000/uL (130-400); RED BLOOD CELL COUNT 6.65 mill/uL (4.2-5.4); RED CELL DISTRIBUTION WIDTH 17.9 % (11.6-14.6)
[2021-04-03 05:52] LABS: CHLORIDE 107 mEq/L (98-107)
[2021-04-03] MEDS: BLOOD SUGAR DIAGNOSTIC STRIP TEST SCH ×5 (06:00→23:19)
[2021-04-03] MEDS: ACETYLCYSTEINE 100MG/ML 10% VIAL 4ML INH SCH ×3 (08:19→20:27)
[2021-04-03 08:39] LABS: BG BASE EXCESS 11.3 mmol/L (-2.0-2.0); BG CARBOXYHEMOGLOBIN 1.5 % (0.5-1.5); BG DEOXYHEMOGLOBIN 15.9 % (0.0-5.0); BG FRACTION INSPIRED OXYGEN 60; BG HCO3 ACT 39.1 mmol/L (22.0-26.0); BG METHEMOGLOBIN 0.7 % (0.0-1.5); BG OXYGEN SATURATION 83.7 % (92.0-98.5); BG OXYHEMOGLOBIN 81.9 % (94.0-97.0); BG PCO2 59.3 mmHg (35.0-45.0); BG PH 7.437 (7.350-7.450); BG PO2 49.4 mmHg (75.0-100.0); BG SAMPLE SITE RIGHT RADIAL; BG TOTAL HEMOGLOBIN 19.9 g/dL (12.0-18.0); BG VENT MODE VENT - AC
[2021-04-03] MEDS: PANTOPRAZOLE SODIUM 40 MG/VIAL IV SCH ×2 (09:19→20:16)
[2021-04-03] MEDS: ENOXAPARIN 150MG/ML SYR SUBCUT SCH ×2 (09:19→20:15)
[2021-04-03] MEDS: FUROSEMIDE 40MG/4ML VIAL IVP SCH (09:19)
[2021-04-03] MEDS: AMLODIPINE 5MG TABLET PO SCH ×2 (09:19→18:13)
[2021-04-03 11:03] LABS: PLATELET ESTIMATE SLIGHTLY DECREASED
[2021-04-03] MEDS: MIDAZOLAM HCL 100 MG in SODIUM CHLORIDE 0.9% 80 ML IV PRN (12:39)
[2021-04-03] MEDS: CEFEPIME 1,000 MG in DEXTROSE 5% WATER 50 ML IV SCH (18:13)
[2021-04-04] VITALS (60 sets, daily range): BP systolic 111–143; BP diastolic 46–98
[2021-04-04] MEDS: IPRATROPIUM/ALBUTEROL 0.5-3(2.5)MG/3ML NEB HHN SCH ×7 (00:14→23:32)
[2021-04-04] MEDS: MIDAZOLAM HCL 100 MG in SODIUM CHLORIDE 0.9% 80 ML IV PRN ×3 (01:01→22:21)
[2021-04-04] MEDS: CEFEPIME 1,000 MG in DEXTROSE 5% WATER 50 ML IV SCH ×2 (05:14→16:34)
[2021-04-04] MEDS: METHYLPREDNISOLONE SOD SUCC 125 MG/2 ML VIAL IV SCH ×3 (05:15→17:20)
[2021-04-04] MEDS: BLOOD SUGAR DIAGNOSTIC STRIP TEST SCH ×3 (05:15→17:18)
[2021-04-04] MEDS: INSULIN LISPRO 100 UNITS/ML SUBCUT SCH ×3 (05:24→17:21)
[2021-04-04 05:52] LABS: HEMATOCRIT. 58.7 % (36.0-48.0); HEMOGLOBIN. 18.6 g/dL (12.0-16.0); MEAN CORPUSCULAR HEMOGLOBIN 27.9 pg (28.0-32.0); MEAN CORPUSCULAR VOLUME 87.8 fL (81.0-99.0); MEAN PLATELET VOLUME 10.3 fl (7.4-10.4); PLATELET 117 x1000/uL (130-400); RED BLOOD CELL COUNT 6.68 mill/uL (4.2-5.4); RED CELL DISTRIBUTION WIDTH 17.9 % (11.6-14.6)
[2021-04-04 05:55] LABS: CHLORIDE 110 mEq/L (98-107)
[2021-04-04] MEDS: ACETYLCYSTEINE 100MG/ML 10% VIAL 4ML INH SCH ×3 (07:50→23:32)
[2021-04-04] MEDS: FENTANYL CITRATE/PF 2,500 MCG in SODIUM CHLORIDE 0.9% 200 ML IV PRN (08:55)
[2021-04-04] MEDS: ENOXAPARIN 150MG/ML SYR SUBCUT SCH ×2 (09:49→22:57)
[2021-04-04] MEDS: PANTOPRAZOLE SODIUM 40 MG/VIAL IV SCH ×2 (09:49→21:18)
[2021-04-04 09:50] LABS: BG BASE EXCESS 11.4 mmol/L (-2.0-2.0); BG CARBOXYHEMOGLOBIN 0.3 % (0.5-1.5); BG DEOXYHEMOGLOBIN 6.8 % (0.0-5.0); BG FRACTION INSPIRED OXYGEN 100; BG HCO3 ACT 38.8 mmol/L (22.0-26.0); BG METHEMOGLOBIN 0.2 % (0.0-1.5); BG OXYGEN SATURATION 93.2 % (92.0-98.5); BG OXYHEMOGLOBIN 92.7 % (94.0-97.0); BG PCO2 56.9 mmHg (35.0-45.0); BG PH 7.452 (7.350-7.450); BG PO2 67.1 mmHg (75.0-100.0); BG SAMPLE SITE LEFT RADIAL; BG TOTAL HEMOGLOBIN 20.1 g/dL (12.0-18.0); BG VENT MODE VENT - AC
[2021-04-04] MEDS: AMLODIPINE 5MG TABLET PO SCH ×2 (09:50→16:35)
[2021-04-04] MEDS: INSULIN GLARGINE UD 100 UNITS/ML SYR SUBCUT SCH ×2 (11:08→21:18)
[2021-04-04 11:48] LABS: PLATELET ESTIMATE SLIGHTLY DECREASED
[2021-04-05] VITALS (75 sets, daily range): BP systolic 109–143; BP diastolic 70–99
[2021-04-05] MEDS: METHYLPREDNISOLONE SOD SUCC 125 MG/2 ML VIAL IV SCH ×5 (00:33→23:59)
[2021-04-05] MEDS: BLOOD SUGAR DIAGNOSTIC STRIP TEST SCH ×5 (00:34→23:59)
[2021-04-05] MEDS: INSULIN LISPRO 100 UNITS/ML SUBCUT SCH ×4 (00:34→17:22)
[2021-04-05] MEDS: IPRATROPIUM/ALBUTEROL 0.5-3(2.5)MG/3ML NEB HHN SCH ×5 (03:12→20:43)
[2021-04-05] MEDS: CEFEPIME 1,000 MG in DEXTROSE 5% WATER 50 ML IV SCH ×2 (04:53→16:18)
[2021-04-05 05:44] LABS: HEMOGLOBIN. 18.5 g/dL (12.0-16.0); MEAN CORPUSCULAR HEMOGLOBIN 27.7 pg (28.0-32.0); MEAN CORPUSCULAR VOLUME 88.3 fL (81.0-99.0); MEAN PLATELET VOLUME 10.3 fl (7.4-10.4); PLATELET 119 x1000/uL (130-400); RED BLOOD CELL COUNT 6.68 mill/uL (4.2-5.4); RED CELL DISTRIBUTION WIDTH 17.9 % (11.6-14.6)
[2021-04-05] MEDS: FENTANYL CITRATE/PF 2,500 MCG in SODIUM CHLORIDE 0.9% 200 ML IV PRN ×2 (05:45→22:23)
[2021-04-05 05:57] LABS: CHLORIDE 113 mEq/L (98-107)
[2021-04-05 07:15] LABS: BG BASE EXCESS 13.5 mmol/L (-2.0-2.0); BG CARBOXYHEMOGLOBIN 0.3 % (0.5-1.5); BG DEOXYHEMOGLOBIN 6.8 % (0.0-5.0); BG FRACTION INSPIRED OXYGEN 100; BG HCO3 ACT 40.1 mmol/L (22.0-26.0); BG METHEMOGLOBIN 0.6 % (0.0-1.5); BG OXYGEN SATURATION 93.1 % (92.0-98.5); BG OXYHEMOGLOBIN 92.3 % (94.0-97.0); BG PCO2 53.3 mmHg (35.0-45.0); BG PH 7.494 (7.350-7.450); BG PO2 65.3 mmHg (75.0-100.0); BG SAMPLE SITE RIGHT RADIAL; BG TOTAL HEMOGLOBIN 19.8 g/dL (12.0-18.0); BG VENT MODE VENT - AC
[2021-04-05] MEDS: ACETYLCYSTEINE 100MG/ML 10% VIAL 4ML INH SCH ×2 (08:15→16:01)
[2021-04-05 08:37] LABS: PLATELET ESTIMATE SLIGHTLY DECREASED
[2021-04-05] MEDS: AMLODIPINE 5MG TABLET PO SCH ×2 (09:52→16:18)
[2021-04-05] MEDS: ENOXAPARIN 150MG/ML SYR SUBCUT SCH ×2 (09:52→20:50)
[2021-04-05] MEDS: PANTOPRAZOLE SODIUM 40 MG/VIAL IV SCH ×2 (09:52→20:50)
[2021-04-05] MEDS: INSULIN GLARGINE UD 100 UNITS/ML SYR SUBCUT SCH ×2 (09:53→22:25)
[2021-04-05] MEDS: MIDAZOLAM HCL 100 MG in SODIUM CHLORIDE 0.9% 80 ML IV PRN ×2 (09:57→19:12)
[2021-04-05] MEDS ORDERED: LACTULOSE 20G/30ML UDC PO SCH (10:00)
[2021-04-06] VITALS (95 sets, daily range): BP systolic 97–143; BP diastolic 40–79
[2021-04-06] MEDS: IPRATROPIUM/ALBUTEROL 0.5-3(2.5)MG/3ML NEB HHN SCH ×6 (00:17→20:28)
[2021-04-06] MEDS: ACETYLCYSTEINE 100MG/ML 10% VIAL 4ML INH SCH ×3 (00:17→15:48)
[2021-04-06] MEDS: CEFEPIME 1,000 MG in DEXTROSE 5% WATER 50 ML IV SCH ×2 (04:33→16:30)
[2021-04-06] MEDS: MIDAZOLAM HCL 100 MG in SODIUM CHLORIDE 0.9% 80 ML IV PRN ×3 (04:41→18:41)
[2021-04-06] MEDS: BLOOD SUGAR DIAGNOSTIC STRIP TEST SCH ×3 (06:10→18:02)
[2021-04-06] MEDS: METHYLPREDNISOLONE SOD SUCC 125 MG/2 ML VIAL IV SCH ×3 (06:10→18:08)
[2021-04-06 06:15] LABS: HEMATOCRIT. 55.8 % (36.0-48.0); HEMOGLOBIN. 17.7 g/dL (12.0-16.0); MEAN CORPUSCULAR HEMOGLOBIN 27.6 pg (28.0-32.0); MEAN PLATELET VOLUME 11.6 fl (7.4-10.4); PLATELET 137 x1000/uL (130-400); RED BLOOD CELL COUNT 6.41 mill/uL (4.2-5.4); RED CELL DISTRIBUTION WIDTH 17.7 % (11.6-14.6)
[2021-04-06 06:19] LABS: CHLORIDE 117 mEq/L (98-107)
[2021-04-06] MEDS: INSULIN LISPRO 100 UNITS/ML SUBCUT SCH ×4 (06:20→18:09)
[2021-04-06 09:05] LABS: BG CARBOXYHEMOGLOBIN 0.3 % (0.5-1.5); BG DEOXYHEMOGLOBIN 7.7 % (0.0-5.0); BG FRACTION INSPIRED OXYGEN 100; BG HCO3 ACT 35.4 mmol/L (22.0-26.0); BG METHEMOGLOBIN 0.5 % (0.0-1.5); BG OXYGEN SATURATION 92.2 % (92.0-98.5); BG OXYHEMOGLOBIN 91.5 % (94.0-97.0); BG PCO2 52.2 mmHg (35.0-45.0); BG PH 7.449 (7.350-7.450); BG PO2 61.9 mmHg (75.0-100.0); BG SAMPLE SITE RIGHT RADIAL; BG TOTAL HEMOGLOBIN 18.8 g/dL (12.0-18.0); BG VENT MODE VENT - AC
[2021-04-06] MEDS: AMLODIPINE 5MG TABLET PO SCH ×2 (09:28→16:30)
[2021-04-06] MEDS: PANTOPRAZOLE SODIUM 40 MG/VIAL IV SCH ×2 (09:28→21:09)
[2021-04-06] MEDS: ENOXAPARIN 150MG/ML SYR SUBCUT SCH ×2 (09:28→21:09)
[2021-04-06] MEDS: INSULIN GLARGINE UD 100 UNITS/ML SYR SUBCUT SCH (09:29)
[2021-04-06] MEDS: ACETAMINOPHEN 325MG TABLET PO PRN ×2 (10:18→16:30)
[2021-04-06 10:59] LABS: PLATELET ESTIMATE NORMAL
[2021-04-06] MEDS: METRONIDAZOLE 500MG TABLET PO SCH ×2 (12:19→21:10)
[2021-04-06] MEDS: FENTANYL CITRATE/PF 2,500 MCG in SODIUM CHLORIDE 0.9% 200 ML IV PRN ×2 (14:37→18:39)
[2021-04-07] VITALS (93 sets, daily range): BP systolic 103–140; BP diastolic 65–103
[2021-04-07] MEDS: METHYLPREDNISOLONE SOD SUCC 125 MG/2 ML VIAL IV SCH ×4 (00:04→21:19)
[2021-04-07] MEDS: BLOOD SUGAR DIAGNOSTIC STRIP TEST SCH ×5 (00:04→23:32)
[2021-04-07] MEDS: INSULIN GLARGINE UD 100 UNITS/ML SYR SUBCUT SCH ×3 (00:12→22:19)
[2021-04-07] MEDS: INSULIN LISPRO 100 UNITS/ML SUBCUT SCH ×5 (00:12→23:32)
[2021-04-07] MEDS: IPRATROPIUM/ALBUTEROL 0.5-3(2.5)MG/3ML NEB HHN SCH ×6 (00:21→20:19)
[2021-04-07] MEDS: ACETYLCYSTEINE 100MG/ML 10% VIAL 4ML INH SCH ×2 (00:21→08:00)
[2021-04-07] MEDS: MIDAZOLAM HCL 100 MG in SODIUM CHLORIDE 0.9% 80 ML IV PRN ×3 (03:18→22:09)
[2021-04-07] MEDS: CEFEPIME 1,000 MG in DEXTROSE 5% WATER 50 ML IV SCH (04:40)
[2021-04-07 06:06] LABS: HEMATOCRIT. 55.7 % (36.0-48.0); HEMOGLOBIN. 17.6 g/dL (12.0-16.0); MEAN CORPUSCULAR HEMOGLOBIN 27.6 pg (28.0-32.0); MEAN CORPUSCULAR VOLUME 87.5 fL (81.0-99.0); MEAN PLATELET VOLUME 10.9 fl (7.4-10.4); PLATELET 124 x1000/uL (130-400); RED BLOOD CELL COUNT 6.37 mill/uL (4.2-5.4); RED CELL DISTRIBUTION WIDTH 17.7 % (11.6-14.6)
[2021-04-07] MEDS: ENOXAPARIN 150MG/ML SYR SUBCUT SCH ×2 (08:10→21:19)
[2021-04-07] MEDS: PANTOPRAZOLE SODIUM 40 MG/VIAL IV SCH ×2 (08:10→21:19)
[2021-04-07] MEDS: METRONIDAZOLE 500MG TABLET PO SCH (08:10)
[2021-04-07] MEDS: ACETAMINOPHEN 325MG TABLET PO PRN ×2 (08:11→14:22)
[2021-04-07] MEDS: AMLODIPINE 5MG TABLET PO SCH ×2 (08:11→18:02)
[2021-04-07] MEDS: DEXTROSE 5% WATER 1,000 ML IV SCH (08:55)
[2021-04-07 09:12] LABS: BG BASE EXCESS 8.4 mmol/L (-2.0-2.0); BG CARBOXYHEMOGLOBIN 0.3 % (0.5-1.5); BG DEOXYHEMOGLOBIN 8.3 % (0.0-5.0); BG HCO3 ACT 35.2 mmol/L (22.0-26.0); BG METHEMOGLOBIN 0.5 % (0.0-1.5); BG OXYGEN SATURATION 91.6 % (92.0-98.5); BG OXYHEMOGLOBIN 90.9 % (94.0-97.0); BG PH 7.432 (7.350-7.450); BG PO2 61.5 mmHg (75.0-100.0); BG TOTAL HEMOGLOBIN 19.3 g/dL (12.0-18.0); BG VENT MODE VENT - AC
[2021-04-07] MEDS: FENTANYL CITRATE/PF 2,500 MCG in SODIUM CHLORIDE 0.9% 200 ML IV PRN (09:53)
[2021-04-07 11:09] LABS: PLATELET ESTIMATE SLIGHTLY DECREASED
[2021-04-07] MEDS: MEROPENEM 2,000 MG in SODIUM CHLORIDE 0.9% 100 ML IV SCH ×2 (11:27→18:02)
[2021-04-08] VITALS (60 sets, daily range): BP systolic 93–128; BP diastolic 52–82
[2021-04-08] MEDS: ACETYLCYSTEINE 100MG/ML 10% VIAL 4ML INH SCH (00:16)
[2021-04-08] MEDS: IPRATROPIUM/ALBUTEROL 0.5-3(2.5)MG/3ML NEB HHN SCH ×6 (00:16→20:07)
[2021-04-08] MEDS: MEROPENEM 2,000 MG in SODIUM CHLORIDE 0.9% 100 ML IV SCH ×3 (02:29→17:12)
[2021-04-08] MEDS: FENTANYL CITRATE/PF 2,500 MCG in SODIUM CHLORIDE 0.9% 200 ML IV PRN (04:18)
[2021-04-08] MEDS: DEXTROSE 5% WATER 1,000 ML IV SCH (04:19)
[2021-04-08 05:52] LABS: CHLORIDE 119 mEq/L (98-107)
[2021-04-08 05:53] LABS: HEMATOCRIT. 54.7 % (36.0-48.0); HEMOGLOBIN. 17.2 g/dL (12.0-16.0); MEAN CORPUSCULAR HEMOGLOBIN 27.6 pg (28.0-32.0); MEAN CORPUSCULAR VOLUME 87.7 fL (81.0-99.0); PLATELET 112 x1000/uL (130-400); RED BLOOD CELL COUNT 6.24 mill/uL (4.2-5.4); RED CELL DISTRIBUTION WIDTH 17.8 % (11.6-14.6)
[2021-04-08] MEDS: BLOOD SUGAR DIAGNOSTIC STRIP TEST SCH ×3 (06:55→18:33)
[2021-04-08] MEDS: INSULIN LISPRO 100 UNITS/ML SUBCUT SCH ×3 (06:56→18:00)
[2021-04-08] MEDS: AMLODIPINE 5MG TABLET PO SCH ×2 (08:10→17:00)
[2021-04-08] MEDS: METHYLPREDNISOLONE SOD SUCC 125 MG/2 ML VIAL IV SCH (08:11)
[2021-04-08] MEDS: PANTOPRAZOLE SODIUM 40 MG/VIAL IV SCH ×2 (08:11→22:12)
[2021-04-08] MEDS: ACETAMINOPHEN 325MG TABLET PO PRN (08:11)
[2021-04-08] MEDS: ENOXAPARIN 150MG/ML SYR SUBCUT SCH (08:11)
[2021-04-08] MEDS: MIDAZOLAM HCL 100 MG in SODIUM CHLORIDE 0.9% 80 ML IV PRN ×2 (08:12→18:38)
[2021-04-08 08:23] LABS: PLATELET ESTIMATE DECREASED
[2021-04-08 08:37] LABS: BG BASE EXCESS 8.3 mmol/L (-2.0-2.0); BG CARBOXYHEMOGLOBIN 0.3 % (0.5-1.5); BG DEOXYHEMOGLOBIN 8.1 % (0.0-5.0); BG FRACTION INSPIRED OXYGEN 100; BG HCO3 ACT 32.8 mmol/L (22.0-26.0); BG METHEMOGLOBIN 0.2 % (0.0-1.5); BG OXYGEN SATURATION 91.9 % (92.0-98.5); BG OXYHEMOGLOBIN 91.4 % (94.0-97.0); BG PCO2 43.5 mmHg (35.0-45.0); BG PH 7.495 (7.350-7.450); BG PO2 61.3 mmHg (75.0-100.0); BG SAMPLE SITE RIGHT RADIAL; BG TOTAL HEMOGLOBIN 19.4 g/dL (12.0-18.0); BG VENT MODE VENT - AC
[2021-04-08] MEDS: INSULIN GLARGINE UD 100 UNITS/ML SYR SUBCUT SCH ×2 (12:23→22:13)
[2021-04-08] MEDS ORDERED: VANCOMYCIN 2,000 MG in DEXT 5% WATER 500 ML IV SCH (17:00)
[2021-04-09] VITALS (60 sets, daily range): BP systolic 82–133; BP diastolic 57–78
[2021-04-09] MEDS: BLOOD SUGAR DIAGNOSTIC STRIP TEST SCH ×4 (00:02→18:47)
[2021-04-09] MEDS: DEXTROSE 5% WATER 1,000 ML IV SCH ×2 (00:02→18:47)
[2021-04-09] MEDS: FENTANYL CITRATE/PF 2,500 MCG in SODIUM CHLORIDE 0.9% 200 ML IV PRN (00:04)
[2021-04-09] MEDS: INSULIN LISPRO 100 UNITS/ML SUBCUT SCH ×4 (00:13→18:46)
[2021-04-09] MEDS: IPRATROPIUM/ALBUTEROL 0.5-3(2.5)MG/3ML NEB HHN SCH ×6 (00:18→20:12)
[2021-04-09] MEDS: MEROPENEM 2,000 MG in SODIUM CHLORIDE 0.9% 100 ML IV SCH ×3 (01:52→18:49)
[2021-04-09] MEDS: MIDAZOLAM HCL 100 MG in SODIUM CHLORIDE 0.9% 80 ML IV PRN (05:19)
[2021-04-09 05:58] LABS: HEMATOCRIT. 56.4 % (36.0-48.0); HEMOGLOBIN. 17.6 g/dL (12.0-16.0); MEAN CORPUSCULAR HEMOGLOBIN 27.6 pg (28.0-32.0); MEAN CORPUSCULAR VOLUME 88.6 fL (81.0-99.0); RED BLOOD CELL COUNT 6.37 mill/uL (4.2-5.4); RED CELL DISTRIBUTION WIDTH 17.7 % (11.6-14.6)
[2021-04-09] MEDS: VANCOMYCIN 1250MG in DEXTROSE 5% WATER 250ML IV SCH (06:02)
[2021-04-09 08:28] LABS: BG BASE EXCESS 6.3 mmol/L (-2.0-2.0); BG CARBOXYHEMOGLOBIN 0.1 % (0.5-1.5); BG DEOXYHEMOGLOBIN 14.5 % (0.0-5.0); BG FRACTION INSPIRED OXYGEN 70; BG HCO3 ACT 32.8 mmol/L (22.0-26.0); BG METHEMOGLOBIN 0.3 % (0.0-1.5); BG OXYGEN SATURATION 85.4 % (92.0-98.5); BG OXYHEMOGLOBIN 85.1 % (94.0-97.0); BG PCO2 52.5 mmHg (35.0-45.0); BG PH 7.414 (7.350-7.450); BG PO2 49.2 mmHg (75.0-100.0); BG SAMPLE SITE LEFT RADIAL; BG TOTAL HEMOGLOBIN 18.9 g/dL (12.0-18.0); BG VENT MODE VENT - AC
[2021-04-09] MEDS ORDERED: METHYLPREDNISOLONE SOD SUCC 125 MG/2 ML VIAL IV SCH (09:00)
[2021-04-09 09:32] LABS: PLATELET ESTIMATE DECREASED
[2021-04-09 09:33] LABS: PLATELET 90 x1000/uL (130-400)
[2021-04-09] MEDS: PANTOPRAZOLE SODIUM 40 MG/VIAL IV SCH ×2 (09:59→20:58)
[2021-04-09] MEDS: AMLODIPINE 5MG TABLET PO SCH ×2 (10:02→17:00)
[2021-04-09] MEDS: INSULIN GLARGINE UD 100 UNITS/ML SYR SUBCUT SCH ×2 (10:03→20:58)
[2021-04-09] MEDS ORDERED: NA PHOS,M-B/NA PHOS,DI-BA ENEMA 118ML PR ONE (10:45)
[2021-04-09] MEDS ORDERED: SORBITOL 70% SOLN 30ML PO NR (10:45)
[2021-04-09] MEDS: FLUCONAZOLE 200 MG/100ML BAG 100 ML IV SCH (21:00)
[2021-04-09] MEDS: ACETAMINOPHEN 325MG TABLET PO PRN (21:16)
[2021-04-10] VITALS (43 sets, daily range): BP systolic 90–176; BP diastolic 49–113
[2021-04-10] MEDS: VANCOMYCIN 1250MG in DEXTROSE 5% WATER 250ML IV SCH (00:30)
[2021-04-10] MEDS: DEXTROSE 5% WATER 1,000 ML IV SCH ×4 (00:31→21:09)
[2021-04-10] MEDS: IPRATROPIUM/ALBUTEROL 0.5-3(2.5)MG/3ML NEB HHN SCH ×6 (00:36→20:01)
[2021-04-10] MEDS: MEROPENEM 2,000 MG in SODIUM CHLORIDE 0.9% 100 ML IV SCH ×3 (02:24→17:18)
[2021-04-10] MEDS: INSULIN LISPRO 100 UNITS/ML SUBCUT SCH ×4 (05:28→17:44)
[2021-04-10] MEDS: BLOOD SUGAR DIAGNOSTIC STRIP TEST SCH ×4 (05:28→17:18)
[2021-04-10 05:35] LABS: BASOPHILS % 0.1 % (0.0-2.0); EOSINOPHILS % 0.4 % (0.0-5.0); HEMATOCRIT. 53.5 % (36.0-48.0); HEMOGLOBIN. 18.4 g/dL (12.0-16.0); LYMPHOCYTES % 7.5 % (20.0-50.0); MEAN CORPUSCULAR HEMOGLOBIN 30.5 pg (28.0-32.0); MEAN CORPUSCULAR VOLUME 88.7 fL (81.0-99.0); MONOCYTES % 3.9 % (2.0-8.0); NEUTROPHILS % 88.1 % (40.0-76.0); RED BLOOD CELL COUNT 6.03 mill/uL (4.2-5.4); RED CELL DISTRIBUTION WIDTH 17.2 % (11.6-14.6)
[2021-04-10 05:53] LABS: INR 1.1; PROTHROMBIN TIME 11.8 sec (9.6-11.0)
[2021-04-10 07:29] LABS: PHOSPHORUS 2.9 mg/dL (2.5-4.9)
[2021-04-10] MEDS: METHYLPREDNISOLONE SOD SUCC 40 MG/ML VIAL IV SCH (08:41)
[2021-04-10] MEDS: PANTOPRAZOLE SODIUM 40 MG/VIAL IV SCH ×2 (08:41→20:23)
[2021-04-10] MEDS: AMLODIPINE 5MG TABLET PO SCH ×2 (08:41→17:00)
[2021-04-10 08:46] LABS: BG BASE EXCESS 5.1 mmol/L (-2.0-2.0); BG CARBOXYHEMOGLOBIN 0.1 % (0.5-1.5); BG DEOXYHEMOGLOBIN 11.4 % (0.0-5.0); BG FRACTION INSPIRED OXYGEN 80; BG HCO3 ACT 29.1 mmol/L (22.0-26.0); BG METHEMOGLOBIN 0.1 % (0.0-1.5); BG OXYGEN SATURATION 88.6 % (92.0-98.5); BG OXYHEMOGLOBIN 88.4 % (94.0-97.0); BG PCO2 40.3 mmHg (35.0-45.0); BG PH 7.477 (7.350-7.450); BG PO2 53.3 mmHg (75.0-100.0); BG SAMPLE SITE LEFT RADIAL; BG TOTAL HEMOGLOBIN 19.8 g/dL (12.0-18.0); BG TOTAL RESPIRATORY RATE 22 b/min; BG VENT MODE VENT - AC
[2021-04-10] MEDS ORDERED: MIDAZOLAM HCL 2 MG/2 ML VIAL ONE (09:55)
[2021-04-10] MEDS ORDERED: ROCURONIUM BROMIDE 10MG/ML VIAL 5ML IV ONE (09:55)
[2021-04-10] MEDS ORDERED: CEFAZOLIN SODIUM 1000MG/VIAL ONE (10:07)
[2021-04-10] MEDS: INSULIN GLARGINE UD 100 UNITS/ML SYR SUBCUT SCH ×2 (10:33→21:11)
[2021-04-10] MEDS ORDERED: NALOXONE HCL 0.4MG/ML VIAL IV PRN (11:45)
[2021-04-10 11:59] LABS: PLATELET 66 x1000/uL (130-400)
[2021-04-10 12:00] LABS: MEAN PLATELET VOLUME 11.5 fl (7.4-10.4)
[2021-04-10] MEDS: ACETAMINOPHEN 325MG TABLET PO PRN (17:52)
[2021-04-10] MEDS: FLUCONAZOLE 200 MG/100ML BAG 100 ML IV SCH (20:30)
[2021-04-10] MEDS: MORPHINE SULFATE 2 MG/ML CPJ (NOT FOR IM USE) IV PRN (22:22)
[2021-04-11] VITALS (44 sets, daily range): BP systolic 84–176; BP diastolic 25–131
[2021-04-11] MEDS: IPRATROPIUM/ALBUTEROL 0.5-3(2.5)MG/3ML NEB HHN SCH ×5 (00:03→20:27)
[2021-04-11] MEDS: VANCOMYCIN 1 G PREMIX 200 ML IV SCH ×2 (00:16→17:01)
[2021-04-11] MEDS: BLOOD SUGAR DIAGNOSTIC STRIP TEST SCH ×5 (00:16→23:19)
[2021-04-11] MEDS: INSULIN LISPRO 100 UNITS/ML SUBCUT SCH ×5 (00:21→23:19)
[2021-04-11] MEDS: MEROPENEM 2,000 MG in SODIUM CHLORIDE 0.9% 100 ML IV SCH ×3 (01:09→17:01)
[2021-04-11] MEDS: DEXTROSE 5% WATER 1,000 ML IV SCH ×2 (05:34→17:02)
[2021-04-11 05:58] LABS: HEMOGLOBIN. 16.5 g/dL (12.0-16.0); MEAN CORPUSCULAR HEMOGLOBIN 27.5 pg (28.0-32.0); MEAN CORPUSCULAR VOLUME 88.2 fL (81.0-99.0); MEAN PLATELET VOLUME 11.6 fl (7.4-10.4); PLATELET 53 x1000/uL (130-400); RED BLOOD CELL COUNT 6.01 mill/uL (4.2-5.4); RED CELL DISTRIBUTION WIDTH 17.8 % (11.6-14.6)
[2021-04-11 06:25] LABS: PHOSPHORUS 2.3 mg/dL (2.5-4.9)
[2021-04-11] MEDS: PANTOPRAZOLE SODIUM 40 MG/VIAL IV SCH ×2 (08:38→22:21)
[2021-04-11] MEDS: METHYLPREDNISOLONE SOD SUCC 40 MG/ML VIAL IV SCH (08:38)
[2021-04-11] MEDS: AMLODIPINE 5MG TABLET PO SCH ×2 (08:38→16:21)
[2021-04-11] MEDS: INSULIN GLARGINE UD 100 UNITS/ML SYR SUBCUT SCH ×2 (09:21→22:22)
[2021-04-11 10:16] LABS: BG BASE EXCESS 3.6 mmol/L (-2.0-2.0); BG CARBOXYHEMOGLOBIN 0.4 % (0.5-1.5); BG DEOXYHEMOGLOBIN 8.8 % (0.0-5.0); BG FRACTION INSPIRED OXYGEN 90; BG HCO3 ACT 27.9 mmol/L (22.0-26.0); BG METHEMOGLOBIN 0.4 % (0.0-1.5); BG OXYGEN SATURATION 91.1 % (92.0-98.5); BG OXYHEMOGLOBIN 90.4 % (94.0-97.0); BG PCO2 40.9 mmHg (35.0-45.0); BG PH 7.451 (7.350-7.450); BG PO2 58.6 mmHg (75.0-100.0); BG SAMPLE SITE LEFT RADIAL; BG TOTAL HEMOGLOBIN 18.5 g/dL (12.0-18.0); BG VENT MODE VENT - AC
[2021-04-11 10:16] LABS: PLATELET ESTIMATE DECREASED
[2021-04-11] MEDS ORDERED: MICAFUNGIN 150 MG in SODIUM CHLORIDE 0.9% 100 ML IV SCH (14:00)
[2021-04-11] MEDS: MICAFUNGIN 150 MG in SODIUM CHLORIDE 0.9% 100 ML IV SCH (16:14)
[2021-04-11] MEDS: MORPHINE SULFATE 2 MG/ML CPJ (NOT FOR IM USE) IV PRN (16:22)
[2021-04-11] MEDS: ACETYLCYSTEINE 100MG/ML 10% VIAL 4ML INH SCH (16:31)
[2021-04-12] VITALS (37 sets, daily range): BP systolic 89–168; BP diastolic 31–126
[2021-04-12] MEDS: IPRATROPIUM/ALBUTEROL 0.5-3(2.5)MG/3ML NEB HHN SCH ×6 (00:08→20:21)
[2021-04-12] MEDS: ACETYLCYSTEINE 100MG/ML 10% VIAL 4ML INH SCH ×4 (00:11→20:21)
[2021-04-12] MEDS: MEROPENEM 2,000 MG in SODIUM CHLORIDE 0.9% 100 ML IV SCH ×3 (03:44→17:55)
[2021-04-12 05:46] LABS: CHLORIDE 122 mEq/L (98-107)
[2021-04-12 05:54] LABS: PHOSPHORUS 1.7 mg/dL (2.5-4.9)
[2021-04-12] MEDS: INSULIN LISPRO 100 UNITS/ML SUBCUT SCH ×3 (06:00→17:52)
[2021-04-12] MEDS: BLOOD SUGAR DIAGNOSTIC STRIP TEST SCH ×3 (06:30→17:51)
[2021-04-12] MEDS ORDERED: METHYLPREDNISOLONE SOD SUCC 40 MG/ML VIAL IV SCH (09:00)
[2021-04-12] MEDS: PANTOPRAZOLE SODIUM 40 MG/VIAL IV SCH ×2 (09:12→21:24)
[2021-04-12] MEDS: AMLODIPINE 5MG TABLET PO SCH ×2 (09:13→17:55)
[2021-04-12] MEDS: INSULIN GLARGINE UD 100 UNITS/ML SYR SUBCUT SCH ×2 (09:13→23:01)
[2021-04-12] MEDS: MORPHINE SULFATE 2 MG/ML CPJ (NOT FOR IM USE) IV PRN ×2 (09:18→20:29)
[2021-04-12 09:28] LABS: BG BASE EXCESS 4.6 mmol/L (-2.0-2.0); BG CARBOXYHEMOGLOBIN 0.3 % (0.5-1.5); BG DEOXYHEMOGLOBIN 6.3 % (0.0-5.0); BG FRACTION INSPIRED OXYGEN 90; BG HCO3 ACT 30.4 mmol/L (22.0-26.0); BG METHEMOGLOBIN 0.2 % (0.0-1.5); BG OXYGEN SATURATION 93.7 % (92.0-98.5); BG OXYHEMOGLOBIN 93.2 % (94.0-97.0); BG PCO2 48.5 mmHg (35.0-45.0); BG PH 7.415 (7.350-7.450); BG PO2 67.6 mmHg (75.0-100.0); BG SAMPLE SITE RIGHT RADIAL; BG VENT MODE VENT - AC
[2021-04-12] MEDS: LORAZEPAM 2MG/ML CPJ IV PRN ×2 (09:54→20:29)
[2021-04-12 10:08] LABS: HEMATOCRIT. 51.8 % (36.0-48.0); HEMOGLOBIN. 16.9 g/dL (12.0-16.0); MEAN CORPUSCULAR HEMOGLOBIN 28.2 pg (28.0-32.0); MEAN CORPUSCULAR VOLUME 86.9 fL (81.0-99.0); RED BLOOD CELL COUNT 5.97 mill/uL (4.2-5.4); RED CELL DISTRIBUTION WIDTH 16.8 % (11.6-14.6)
[2021-04-12 10:42] LABS: MEAN PLATELET VOLUME 15.7 fl (7.4-10.4); PLATELET ESTIMATE DECREASED
[2021-04-12 10:43] LABS: PLATELET 74 x1000/uL (130-400)
[2021-04-12] MEDS ORDERED: POTASSIUM PHOS,M-BASIC-D-BASIC 15 MMOL in DEXT 5% WATER 245 ML IV SCH (11:00)
[2021-04-12] MEDS: VANCOMYCIN 1 G PREMIX 200 ML IV SCH (13:29)
[2021-04-12] MEDS: DEXTROSE 5% WATER 1,000 ML IV SCH (14:51)
[2021-04-12] MEDS: MICAFUNGIN 150 MG in SODIUM CHLORIDE 0.9% 100 ML IV SCH (17:52)
[2021-04-12] MEDS ORDERED: DIPHENHYDRAMINE 50MG/ML VIAL IV PRN (20:30)
[2021-04-13] VITALS (87 sets, daily range): BP systolic 44–136; BP diastolic 23–96
[2021-04-13] MEDS: IPRATROPIUM/ALBUTEROL 0.5-3(2.5)MG/3ML NEB HHN SCH ×6 (00:10→20:20)
[2021-04-13] MEDS: BLOOD SUGAR DIAGNOSTIC STRIP TEST SCH ×4 (00:21→18:12)
[2021-04-13] MEDS: MEROPENEM 2,000 MG in SODIUM CHLORIDE 0.9% 100 ML IV SCH ×3 (01:44→17:09)
[2021-04-13] MEDS: VANCOMYCIN 1 G PREMIX 200 ML IV SCH ×2 (07:58→22:10)
[2021-04-13] MEDS: INSULIN LISPRO 100 UNITS/ML SUBCUT SCH ×4 (08:00→18:00)
[2021-04-13] MEDS: ACETYLCYSTEINE 100MG/ML 10% VIAL 4ML INH SCH ×2 (08:45→16:34)
[2021-04-13] MEDS: PANTOPRAZOLE SODIUM 40 MG/VIAL IV SCH ×2 (08:47→22:09)
[2021-04-13] MEDS: ACETAMINOPHEN 325MG TABLET PO PRN ×2 (08:48→17:09)
[2021-04-13] MEDS ORDERED: DOCUSATE SODIUM 100MG CAPSULE PO SCH (09:00)
[2021-04-13] MEDS: AMLODIPINE 5MG TABLET PO SCH ×2 (09:00→17:00)
[2021-04-13 09:02] LABS: BG BASE EXCESS 4.4 mmol/L (-2.0-2.0); BG DEOXYHEMOGLOBIN 12.6 % (0.0-5.0); BG FRACTION INSPIRED OXYGEN 90; BG HCO3 ACT 29.6 mmol/L (22.0-26.0); BG METHEMOGLOBIN 0.4 % (0.0-1.5); BG OXYGEN SATURATION 87.2 % (92.0-98.5); BG PCO2 45.5 mmHg (35.0-45.0); BG PH 7.431 (7.350-7.450); BG PO2 50.6 mmHg (75.0-100.0); BG SAMPLE SITE RIGHT RADIAL; BG TOTAL HEMOGLOBIN 17.1 g/dL (12.0-18.0); BG VENT MODE VENT - AC
[2021-04-13] MEDS: DOCUSATE SODIUM SUGAR FREE 100MG/10ML UDC NG SCH ×2 (09:24→17:08)
[2021-04-13] MEDS: INSULIN GLARGINE UD 100 UNITS/ML SYR SUBCUT SCH ×2 (10:00→22:47)
[2021-04-13 10:15] LABS: HEMOGLOBIN. 15.5 g/dL (12.0-16.0); MEAN CORPUSCULAR HEMOGLOBIN 28.2 pg (28.0-32.0); MEAN CORPUSCULAR VOLUME 87.1 fL (81.0-99.0); RED BLOOD CELL COUNT 5.51 mill/uL (4.2-5.4); RED CELL DISTRIBUTION WIDTH 17.2 % (11.6-14.6)
[2021-04-13 10:21] LABS: CHLORIDE 119 mEq/L (98-107)
[2021-04-13 10:35] LABS: VANCOMYCIN TROUGH 30.5 ug/mL (5.0-10.0)
[2021-04-13] MEDS: DEXTROSE 5% WATER 1,000 ML IV SCH (10:55)
[2021-04-13 12:09] LABS: BG BASE EXCESS 5.6 mmol/L (-2.0-2.0); BG DEOXYHEMOGLOBIN 6.7 % (0.0-5.0); BG FRACTION INSPIRED OXYGEN 80; BG HCO3 ACT 31.1 mmol/L (22.0-26.0); BG METHEMOGLOBIN 0.4 % (0.0-1.5); BG OXYGEN SATURATION 93.2 % (92.0-98.5); BG OXYHEMOGLOBIN 91.9 % (94.0-97.0); BG PCO2 47.5 mmHg (35.0-45.0); BG PH 7.434 (7.350-7.450); BG PO2 65.3 mmHg (75.0-100.0); BG SAMPLE SITE UVC; BG TOTAL HEMOGLOBIN 16.9 g/dL (12.0-18.0); BG VENT MODE VENT - AC
[2021-04-13] MEDS ORDERED: SODIUM CHLORIDE 3% FOR INH 4ML UD NEB INH SCH (14:00)
[2021-04-13 14:44] LABS: PLATELET ESTIMATE MARKEDLY DECREASED
[2021-04-13] MEDS: MICAFUNGIN 150 MG in SODIUM CHLORIDE 0.9% 100 ML IV SCH (15:32)
[2021-04-13] MEDS ORDERED: POTASSIUM PHOS,M-BASIC-D-BASIC 15 MMOL in DEXT 5% WATER 245 ML IV SCH (16:00)
[2021-04-14] VITALS (85 sets, daily range): BP systolic 85–147; BP diastolic 40–112
[2021-04-14] MEDS: BLOOD SUGAR DIAGNOSTIC STRIP TEST SCH ×4 (00:02→18:50)
[2021-04-14] MEDS: IPRATROPIUM/ALBUTEROL 0.5-3(2.5)MG/3ML NEB HHN SCH ×7 (00:28→20:31)
[2021-04-14] MEDS: ACETYLCYSTEINE 100MG/ML 10% VIAL 4ML INH SCH ×3 (00:28→16:35)
[2021-04-14] MEDS: MEROPENEM 2,000 MG in SODIUM CHLORIDE 0.9% 100 ML IV SCH ×3 (02:05→17:24)
[2021-04-14 06:24] LABS: HEMATOCRIT. 48.9 % (36.0-48.0); HEMOGLOBIN. 15.5 g/dL (12.0-16.0); MEAN CORPUSCULAR HEMOGLOBIN 27.3 pg (28.0-32.0); MEAN CORPUSCULAR VOLUME 86.1 fL (81.0-99.0); RED BLOOD CELL COUNT 5.68 mill/uL (4.2-5.4); RED CELL DISTRIBUTION WIDTH 16.9 % (11.6-14.6)
[2021-04-14 06:32] LABS: CHLORIDE 117 mEq/L (98-107); PLATELET 28 x1000/uL (130-400)
[2021-04-14] MEDS: DEXTROSE 5% WATER 1,000 ML IV SCH (06:35)
[2021-04-14] MEDS: INSULIN LISPRO 100 UNITS/ML SUBCUT SCH ×4 (06:36→18:00)
[2021-04-14 06:39] LABS: PHOSPHORUS 1.8 mg/dL (2.5-4.9)
[2021-04-14] MEDS: AMLODIPINE 5MG TABLET PO SCH (09:00)
[2021-04-14] MEDS: PANTOPRAZOLE SODIUM 40 MG/VIAL IV SCH ×2 (09:51→21:27)
[2021-04-14] MEDS: DOCUSATE SODIUM SUGAR FREE 100MG/10ML UDC NG SCH ×2 (09:51→17:00)
[2021-04-14] MEDS: INSULIN GLARGINE UD 100 UNITS/ML SYR SUBCUT SCH ×2 (09:53→21:28)
[2021-04-14 10:13] LABS: BG BASE EXCESS 4.5 mmol/L (-2.0-2.0); BG CARBOXYHEMOGLOBIN 1.4 % (0.5-1.5); BG DEOXYHEMOGLOBIN 14.7 % (0.0-5.0); BG FRACTION INSPIRED OXYGEN 60; BG HCO3 ACT 28.6 mmol/L (22.0-26.0); BG METHEMOGLOBIN 0.3 % (0.0-1.5); BG OXYHEMOGLOBIN 83.6 % (94.0-97.0); BG PCO2 40.7 mmHg (35.0-45.0); BG PH 7.465 (7.350-7.450); BG PO2 45.9 mmHg (75.0-100.0); BG SAMPLE SITE LEFT RADIAL; BG TOTAL HEMOGLOBIN 17.3 g/dL (12.0-18.0); BG VENT MODE VENT - AC
[2021-04-14] MEDS: VANCOMYCIN 1 G PREMIX 200 ML IV SCH ×2 (10:43→21:22)
[2021-04-14 11:30] LABS: BG BASE EXCESS 6.1 mmol/L (-2.0-2.0); BG CARBOXYHEMOGLOBIN 1.1 % (0.5-1.5); BG DEOXYHEMOGLOBIN 13.4 % (0.0-5.0); BG FRACTION INSPIRED OXYGEN 60; BG HCO3 ACT 30.4 mmol/L (22.0-26.0); BG METHEMOGLOBIN 0.3 % (0.0-1.5); BG OXYGEN SATURATION 86.4 % (92.0-98.5); BG OXYHEMOGLOBIN 85.2 % (94.0-97.0); BG PCO2 42.1 mmHg (35.0-45.0); BG PH 7.476 (7.350-7.450); BG PO2 49.4 mmHg (75.0-100.0); BG SAMPLE SITE LEFT RADIAL; BG TOTAL HEMOGLOBIN 16.2 g/dL (12.0-18.0); BG VENT MODE VENT - AC
[2021-04-14] MEDS ORDERED: SODIUM POLYSTYRENE SULFONATE 15 G/60 ML BOT PO NR (12:00)
[2021-04-14] MEDS: ACETAMINOPHEN 325MG TABLET PO PRN (12:27)
[2021-04-14] MEDS ORDERED: POTASSIUM PHOS,M-BASIC-D-BASIC 20 MMOL in DEXT 5% WATER 243.3333 ML IV NR (13:00)
[2021-04-14 13:23] LABS: BG BASE EXCESS 3.6 mmol/L (-2.0-2.0); BG CARBOXYHEMOGLOBIN 0.5 % (0.5-1.5); BG DEOXYHEMOGLOBIN 5.3 % (0.0-5.0); BG FRACTION INSPIRED OXYGEN 100; BG HCO3 ACT 27.5 mmol/L (22.0-26.0); BG METHEMOGLOBIN 0.2 % (0.0-1.5); BG OXYGEN SATURATION 94.7 % (92.0-98.5); BG PCO2 39.5 mmHg (35.0-45.0); BG PH 7.461 (7.350-7.450); BG PO2 71.9 mmHg (75.0-100.0); BG SAMPLE SITE LEFT RADIAL; BG TOTAL HEMOGLOBIN 16.2 g/dL (12.0-18.0); BG VENT MODE VENT - AC
[2021-04-14] MEDS ORDERED: SODIUM PHOS,M-BASIC-D-BASIC 30 MM in DEXT 5% WATER 500 ML IV NR (14:00)
[2021-04-14 14:05] LABS: PLATELET ESTIMATE MARKEDLY DECREASED
[2021-04-14] MEDS: MICAFUNGIN 150 MG in SODIUM CHLORIDE 0.9% 100 ML IV SCH (16:16)
[2021-04-15] VITALS (32 sets, daily range): BP systolic 63–135; BP diastolic 29–107
[2021-04-15] MEDS: BLOOD SUGAR DIAGNOSTIC STRIP TEST SCH ×4 (00:20→17:09)
[2021-04-15] MEDS: DEXTROSE 5% WATER 1,000 ML IV SCH (00:21)
[2021-04-15] MEDS: ACETYLCYSTEINE 100MG/ML 10% VIAL 4ML INH SCH ×3 (00:26→17:00)
[2021-04-15] MEDS: IPRATROPIUM/ALBUTEROL 0.5-3(2.5)MG/3ML NEB HHN SCH ×6 (00:27→20:28)
[2021-04-15] MEDS: MEROPENEM 2,000 MG in SODIUM CHLORIDE 0.9% 100 ML IV SCH ×3 (01:38→17:09)
[2021-04-15] MEDS: INSULIN LISPRO 100 UNITS/ML SUBCUT SCH ×4 (05:37→17:24)
[2021-04-15] MEDS: PANTOPRAZOLE SODIUM 40 MG/VIAL IV SCH ×2 (07:59→20:47)
[2021-04-15] MEDS: DOCUSATE SODIUM SUGAR FREE 100MG/10ML UDC NG SCH ×2 (07:59→16:07)
[2021-04-15] MEDS: VANCOMYCIN 1 G PREMIX 200 ML IV SCH ×2 (08:00→20:47)
[2021-04-15] MEDS ORDERED: AMLODIPINE 5MG TABLET PO SCH (09:00)
[2021-04-15] MEDS: ACETAMINOPHEN 650MG/20.3ML UDC PO PRN ×3 (09:12→18:35)
[2021-04-15 09:17] LABS: CHLORIDE 114 mEq/L (98-107)
[2021-04-15 09:24] LABS: PHOSPHORUS 2.1 mg/dL (2.5-4.9)
[2021-04-15 09:37] LABS: HEMATOCRIT. 43.7 % (36.0-48.0); HEMOGLOBIN. 14.1 g/dL (12.0-16.0); MEAN CORPUSCULAR HEMOGLOBIN 27.9 pg (28.0-32.0); MEAN CORPUSCULAR VOLUME 86.6 fL (81.0-99.0); MEAN PLATELET VOLUME 12.3 fl (7.4-10.4); RED BLOOD CELL COUNT 5.04 mill/uL (4.2-5.4); RED CELL DISTRIBUTION WIDTH 16.8 % (11.6-14.6)
[2021-04-15 09:56] LABS: PLATELET 46 x1000/uL (130-400)
[2021-04-15] MEDS: INSULIN GLARGINE UD 100 UNITS/ML SYR SUBCUT SCH (11:11)
[2021-04-15 11:37] LABS: PLATELET ESTIMATE DECREASED
[2021-04-15 11:48] LABS: BG BASE EXCESS 6.8 mmol/L (-2.0-2.0); BG CARBOXYHEMOGLOBIN 1.2 % (0.5-1.5); BG DEOXYHEMOGLOBIN 6.4 % (0.0-5.0); BG FRACTION INSPIRED OXYGEN 100; BG HCO3 ACT 31.5 mmol/L (22.0-26.0); BG METHEMOGLOBIN 0.1 % (0.0-1.5); BG OXYGEN SATURATION 93.5 % (92.0-98.5); BG OXYHEMOGLOBIN 92.3 % (94.0-97.0); BG PCO2 44.8 mmHg (35.0-45.0); BG PH 7.465 (7.350-7.450); BG PO2 66.6 mmHg (75.0-100.0); BG SAMPLE SITE LEFT RADIAL; BG TOTAL HEMOGLOBIN 14.2 g/dL (12.0-18.0); BG VENT MODE VENT - AC
[2021-04-15] MEDS ORDERED: POTASSIUM PHOS,M-BASIC-D-BASIC 20 MMOL in DEXT 5% WATER 243.3333 ML IV NR (12:30)
[2021-04-15] MEDS: MICAFUNGIN 150 MG in SODIUM CHLORIDE 0.9% 100 ML IV SCH (16:55)
[2021-04-16] VITALS (13 sets, daily range): BP systolic 94–136; BP diastolic 57–80
[2021-04-16] MEDS: INSULIN GLARGINE UD 100 UNITS/ML SYR SUBCUT SCH ×3 (00:09→21:49)
[2021-04-16] MEDS: BLOOD SUGAR DIAGNOSTIC STRIP TEST SCH ×4 (00:10→17:05)
[2021-04-16] MEDS: IPRATROPIUM/ALBUTEROL 0.5-3(2.5)MG/3ML NEB HHN SCH ×6 (00:19→20:28)
[2021-04-16] MEDS: ACETYLCYSTEINE 100MG/ML 10% VIAL 4ML INH SCH ×3 (00:19→20:30)
[2021-04-16] MEDS: MEROPENEM 2,000 MG in SODIUM CHLORIDE 0.9% 100 ML IV SCH ×3 (03:36→17:05)
[2021-04-16] MEDS: ACETAMINOPHEN 650MG/20.3ML UDC PO PRN ×2 (03:42→20:58)
[2021-04-16] MEDS: INSULIN LISPRO 100 UNITS/ML SUBCUT SCH ×4 (06:00→17:06)
[2021-04-16] MEDS: VANCOMYCIN 1 G PREMIX 200 ML IV SCH ×2 (09:47→21:49)
[2021-04-16] MEDS: PANTOPRAZOLE SODIUM 40 MG/VIAL IV SCH ×2 (09:48→21:49)
[2021-04-16] MEDS: DOCUSATE SODIUM SUGAR FREE 100MG/10ML UDC NG SCH ×2 (09:49→16:38)
[2021-04-16 10:35] LABS: BG BASE EXCESS 7.4 mmol/L (-2.0-2.0); BG CARBOXYHEMOGLOBIN 0.6 % (0.5-1.5); BG DEOXYHEMOGLOBIN 5.8 % (0.0-5.0); BG FRACTION INSPIRED OXYGEN 100; BG HCO3 ACT 33.5 mmol/L (22.0-26.0); BG METHEMOGLOBIN 0.3 % (0.0-1.5); BG OXYGEN SATURATION 94.1 % (92.0-98.5); BG OXYHEMOGLOBIN 93.3 % (94.0-97.0); BG PCO2 52.4 mmHg (35.0-45.0); BG PH 7.423 (7.350-7.450); BG PO2 71.1 mmHg (75.0-100.0); BG SAMPLE SITE LEFT RADIAL; BG VENT MODE VENT - AC
[2021-04-16 13:06] LABS: PLATELET 38 x1000/uL (130-400)
[2021-04-16] MEDS: ACETAMINOPHEN 325MG TABLET PO PRN (13:16)
[2021-04-16] MEDS: MICAFUNGIN 150 MG in SODIUM CHLORIDE 0.9% 100 ML IV SCH (15:19)
[2021-04-16 18:27] LABS: HEMATOCRIT. 40.9 % (36.0-48.0); HEMOGLOBIN. 13.5 g/dL (12.0-16.0); MEAN CORPUSCULAR HEMOGLOBIN 27.9 pg (28.0-32.0); MEAN CORPUSCULAR VOLUME 84.8 fL (81.0-99.0); MEAN PLATELET VOLUME 11.7 fl (7.4-10.4); PLATELET 63 x1000/uL (130-400); RED BLOOD CELL COUNT 4.82 mill/uL (4.2-5.4); RED CELL DISTRIBUTION WIDTH 16.8 % (11.6-14.6)
[2021-04-16 18:36] LABS: CHLORIDE 116 mEq/L (98-107)
[2021-04-16 18:42] LABS: PHOSPHORUS 1.6 mg/dL (2.5-4.9)
[2021-04-16 19:16] LABS: PLATELET ESTIMATE DECREASED
[2021-04-16] MEDS: DEXTROSE 5% WATER 1,000 ML IV SCH (21:49)
[2021-04-17] VITALS (13 sets, daily range): BP systolic 91–134; BP diastolic 57–79
[2021-04-17] MEDS: IPRATROPIUM/ALBUTEROL 0.5-3(2.5)MG/3ML NEB HHN SCH ×6 (00:20→20:30)
[2021-04-17] MEDS: MEROPENEM 2,000 MG in SODIUM CHLORIDE 0.9% 100 ML IV SCH ×3 (01:43→17:45)
[2021-04-17 03:23] LABS: CLARITY URINE CLOUDY (CLEAR); COLOR URINE DARK YELLOW (YELLOW); KETONES URINE TRACE (NEGATIVE); LEUKOCYTE ESTERASE URINE 1+ (NEGATIVE); NITRITE URINE NEGATIVE (NEGATIVE); OCCULT BLOOD URINE 3+ (NEGATIVE); PH URINE 7.5 (4.5-8.0); PROTEIN URINE 3+ (NEGATIVE); SPECIFIC GRAVITY URINE 1.022 (1.005-1.030); UROBILINOGEN URINE >8.0 E.U./dL (0.2-1.0)
[2021-04-17] MEDS: INSULIN LISPRO 100 UNITS/ML SUBCUT SCH ×5 (06:00→23:16)
[2021-04-17] MEDS: BLOOD SUGAR DIAGNOSTIC STRIP TEST SCH ×5 (06:07→23:16)
[2021-04-17 07:21] LABS: CHLORIDE 116 mEq/L (98-107)
[2021-04-17 07:25] LABS: PHOSPHORUS 2.1 mg/dL (2.5-4.9)
[2021-04-17 07:41] LABS: HEMATOCRIT. 39.9 % (36.0-48.0); HEMOGLOBIN. 12.9 g/dL (12.0-16.0); MEAN CORPUSCULAR HEMOGLOBIN 27.8 pg (28.0-32.0); MEAN CORPUSCULAR VOLUME 86.1 fL (81.0-99.0); MEAN PLATELET VOLUME 11.3 fl (7.4-10.4); PLATELET 78 x1000/uL (130-400); RED BLOOD CELL COUNT 4.64 mill/uL (4.2-5.4); RED CELL DISTRIBUTION WIDTH 17.1 % (11.6-14.6)
[2021-04-17] MEDS: DOCUSATE SODIUM SUGAR FREE 100MG/10ML UDC NG SCH ×2 (08:56→16:08)
[2021-04-17] MEDS: PANTOPRAZOLE SODIUM 40 MG/VIAL IV SCH ×2 (09:18→21:35)
[2021-04-17] MEDS: ACETAMINOPHEN 325MG TABLET PO PRN (09:19)
[2021-04-17] MEDS: VANCOMYCIN 1 G PREMIX 200 ML IV SCH ×2 (09:31→21:35)
[2021-04-17] MEDS ORDERED: POTASSIUM PHOS,M-BASIC-D-BASIC 15 MMOL in DEXT 5% WATER 245 ML IV NR (10:00)
[2021-04-17 12:53] LABS: NUCLEATED RED BLOOD CELLS 1 /100 WBC
[2021-04-17 12:54] LABS: PLATELET ESTIMATE DECREASED
[2021-04-17] MEDS: MICAFUNGIN 150 MG in SODIUM CHLORIDE 0.9% 100 ML IV SCH (16:36)
[2021-04-17] MEDS: METHYLPREDNISOLONE SOD SUCC 125 MG/2 ML VIAL IV SCH (17:45)
[2021-04-18] VITALS (11 sets, daily range): BP systolic 108–142; BP diastolic 70–85
[2021-04-18] MEDS: METHYLPREDNISOLONE SOD SUCC 125 MG/2 ML VIAL IV SCH ×5 (00:23→23:43)
[2021-04-18] MEDS: IPRATROPIUM/ALBUTEROL 0.5-3(2.5)MG/3ML NEB HHN SCH ×6 (00:26→21:40)
[2021-04-18] MEDS: MEROPENEM 2,000 MG in SODIUM CHLORIDE 0.9% 100 ML IV SCH ×3 (01:22→21:06)
[2021-04-18 05:11] LABS: HEMATOCRIT. 37.9 % (36.0-48.0); HEMOGLOBIN. 12.4 g/dL (12.0-16.0); MEAN CORPUSCULAR HEMOGLOBIN 27.9 pg (28.0-32.0); MEAN CORPUSCULAR VOLUME 85.1 fL (81.0-99.0); MEAN PLATELET VOLUME 11.3 fl (7.4-10.4); PLATELET 87 x1000/uL (130-400); RED BLOOD CELL COUNT 4.46 mill/uL (4.2-5.4)
[2021-04-18 05:20] LABS: CHLORIDE 112 mEq/L (98-107)
[2021-04-18] MEDS: BLOOD SUGAR DIAGNOSTIC STRIP TEST SCH ×4 (05:28→23:43)
[2021-04-18] MEDS: INSULIN LISPRO 100 UNITS/ML SUBCUT SCH ×3 (05:28→18:00)
[2021-04-18] MEDS: VANCOMYCIN 1 G PREMIX 200 ML IV SCH (08:58)
[2021-04-18] MEDS: PANTOPRAZOLE SODIUM 40 MG/VIAL IV SCH ×2 (08:58→21:06)
[2021-04-18] MEDS: DOCUSATE SODIUM SUGAR FREE 100MG/10ML UDC NG SCH ×2 (08:58→17:00)
[2021-04-18 12:18] LABS: BG BASE EXCESS 3.2 mmol/L (-2.0-2.0); BG CARBOXYHEMOGLOBIN 0.1 % (0.5-1.5); BG DEOXYHEMOGLOBIN 3.7 % (0.0-5.0); BG FRACTION INSPIRED OXYGEN 100; BG HCO3 ACT 26.8 mmol/L (22.0-26.0); BG METHEMOGLOBIN 0.1 % (0.0-1.5); BG OXYGEN SATURATION 96.3 % (92.0-98.5); BG OXYHEMOGLOBIN 96.1 % (94.0-97.0); BG PCO2 37.5 mmHg (35.0-45.0); BG PH 7.472 (7.350-7.450); BG PO2 87.2 mmHg (75.0-100.0); BG SAMPLE SITE LEFT RADIAL; BG TOTAL HEMOGLOBIN 13.4 g/dL (12.0-18.0); BG VENT MODE VENT - AC
[2021-04-18] MEDS: LORAZEPAM 2MG/ML CPJ IV PRN ×2 (12:55→23:43)
[2021-04-18] MEDS: MICAFUNGIN 150 MG in SODIUM CHLORIDE 0.9% 100 ML IV SCH (15:22)
[2021-04-18] MEDS ORDERED: MIDAZOLAM HCL 5 MG/5 ML VIAL IV PRN (16:03)
[2021-04-18] MEDS ORDERED: FENTANYL CITRATE/PF 50MCG/ML 2ML VIAL ONE (16:03)
[2021-04-18] MEDS ORDERED: MIDAZOLAM HCL 5 MG/5 ML VIAL ONE (16:03)
[2021-04-18] MEDS ORDERED: FENTANYL CITRATE/PF 50MCG/ML 2ML VIAL IV PRN (16:30)
[2021-04-18 16:53] LABS: PLATELET ESTIMATE DECREASED
[2021-04-18] MEDS: VANCOMYCIN 1250MG in DEXTROSE 5% WATER 250ML IV SCH (21:06)
[2021-04-19] VITALS (21 sets, daily range): BP systolic 88–148; BP diastolic 66–90
[2021-04-19] MEDS: IPRATROPIUM/ALBUTEROL 0.5-3(2.5)MG/3ML NEB HHN SCH ×6 (01:10→20:02)
[2021-04-19] MEDS: MEROPENEM 2,000 MG in SODIUM CHLORIDE 0.9% 100 ML IV SCH ×3 (01:30→18:52)
[2021-04-19] MEDS: BLOOD SUGAR DIAGNOSTIC STRIP TEST SCH ×3 (05:42→18:35)
[2021-04-19] MEDS: METHYLPREDNISOLONE SOD SUCC 125 MG/2 ML VIAL IV SCH ×3 (05:42→18:36)
[2021-04-19] MEDS: INSULIN LISPRO 100 UNITS/ML SUBCUT SCH ×4 (05:47→18:00)
[2021-04-19 06:40] LABS: CHLORIDE 115 mEq/L (98-107)
[2021-04-19 06:54] LABS: PHOSPHORUS 2.8 mg/dL (2.5-4.9)
[2021-04-19] MEDS: DOCUSATE SODIUM SUGAR FREE 100MG/10ML UDC NG SCH ×2 (08:25→16:21)
[2021-04-19] MEDS: PANTOPRAZOLE SODIUM 40 MG/VIAL IV SCH ×2 (08:26→22:46)
[2021-04-19 08:27] LABS: HEMATOCRIT. 41.2 % (36.0-48.0); HEMOGLOBIN. 13.3 g/dL (12.0-16.0); MEAN CORPUSCULAR HEMOGLOBIN 27.4 pg (28.0-32.0); MEAN CORPUSCULAR VOLUME 85.1 fL (81.0-99.0); PLATELET 128 x1000/uL (130-400); RED BLOOD CELL COUNT 4.84 mill/uL (4.2-5.4); RED CELL DISTRIBUTION WIDTH 16.9 % (11.6-14.6)
[2021-04-19] MEDS: VANCOMYCIN 1250MG in DEXTROSE 5% WATER 250ML IV SCH ×2 (09:16→23:09)
[2021-04-19 14:04] LABS: PLATELET ESTIMATE SLIGHTLY DECREASED
[2021-04-19] MEDS: MICAFUNGIN 150 MG in SODIUM CHLORIDE 0.9% 100 ML IV SCH (16:21)
[2021-04-19] MEDS ORDERED: AMIODARONE HCL 50MG/ML 9ML VIAL IV ONE (21:45)
[2021-04-19] MEDS ORDERED: AMIODARONE HCL 150 MG in DEXT 5% WATER 100 ML IV NR (22:00)
[2021-04-19] MEDS ORDERED: PHENYLEPHRINE 100 MG in DEXT 5% WATER 240 ML IV PRN (22:00)
[2021-04-19] MEDS ORDERED: AMIODARONE HCL 900 MG in DEXT 5% WATER 500 ML IV PRN (22:00)
[2021-04-20] VITALS (74 sets, daily range): BP systolic 100–132; BP diastolic 52–91
[2021-04-20] MEDS: BLOOD SUGAR DIAGNOSTIC STRIP TEST SCH ×4 (00:30→17:25)
[2021-04-20] MEDS: METHYLPREDNISOLONE SOD SUCC 125 MG/2 ML VIAL IV SCH ×4 (00:30→17:26)
[2021-04-20] MEDS: INSULIN LISPRO 100 UNITS/ML SUBCUT SCH ×4 (00:30→17:26)
[2021-04-20] MEDS: IPRATROPIUM/ALBUTEROL 0.5-3(2.5)MG/3ML NEB HHN SCH ×6 (01:11→20:04)
[2021-04-20] MEDS: MEROPENEM 2,000 MG in SODIUM CHLORIDE 0.9% 100 ML IV SCH ×3 (01:40→18:19)
[2021-04-20 04:54] LABS: HEMATOCRIT. 45.2 % (36.0-48.0); HEMOGLOBIN. 14.2 g/dL (12.0-16.0); MEAN CORPUSCULAR HEMOGLOBIN 26.8 pg (28.0-32.0); MEAN CORPUSCULAR VOLUME 85.3 fL (81.0-99.0); MEAN PLATELET VOLUME 10.8 fl (7.4-10.4); PLATELET 181 x1000/uL (130-400); RED CELL DISTRIBUTION WIDTH 16.6 % (11.6-14.6)
[2021-04-20 05:09] LABS: CHLORIDE 114 mEq/L (98-107)
[2021-04-20 08:31] LABS: BG BASE EXCESS 0.3 mmol/L (-2.0-2.0); BG CARBOXYHEMOGLOBIN 1.3 % (0.5-1.5); BG DEOXYHEMOGLOBIN 7.9 % (0.0-5.0); BG FRACTION INSPIRED OXYGEN 80; BG METHEMOGLOBIN 0.4 % (0.0-1.5); BG OXYHEMOGLOBIN 90.4 % (94.0-97.0); BG PCO2 40.8 mmHg (35.0-45.0); BG PH 7.406 (7.350-7.450); BG PO2 66.3 mmHg (75.0-100.0); BG SAMPLE SITE RIGHT RADIAL; BG TOTAL HEMOGLOBIN 15.1 g/dL (12.0-18.0); BG VENT MODE VENT - AC
[2021-04-20] MEDS: DOCUSATE SODIUM SUGAR FREE 100MG/10ML UDC NG SCH ×2 (09:41→17:26)
[2021-04-20] MEDS: VANCOMYCIN 1250MG in DEXTROSE 5% WATER 250ML IV SCH (09:41)
[2021-04-20] MEDS: PANTOPRAZOLE SODIUM 40 MG/VIAL IV SCH ×2 (09:41→20:52)
[2021-04-20 11:35] LABS: PLATELET ESTIMATE NORMAL
[2021-04-20] MEDS: ENOXAPARIN 150MG/ML SYR SUBCUT SCH ×2 (14:51→20:52)
[2021-04-20] MEDS: MICAFUNGIN 150 MG in SODIUM CHLORIDE 0.9% 100 ML IV SCH (17:02)
[2021-04-21] VITALS (36 sets, daily range): BP systolic 60–124; BP diastolic 42–69
[2021-04-21] MEDS: BLOOD SUGAR DIAGNOSTIC STRIP TEST SCH ×4 (00:08→17:00)
[2021-04-21] MEDS: IPRATROPIUM/ALBUTEROL 0.5-3(2.5)MG/3ML NEB HHN SCH ×6 (00:10→21:12)
[2021-04-21] MEDS: INSULIN LISPRO 100 UNITS/ML SUBCUT SCH ×4 (00:15→17:07)
[2021-04-21] MEDS: METHYLPREDNISOLONE SOD SUCC 125 MG/2 ML VIAL IV SCH ×4 (00:16→17:00)
[2021-04-21] MEDS: MEROPENEM 2,000 MG in SODIUM CHLORIDE 0.9% 100 ML IV SCH (01:30)
[2021-04-21 06:09] LABS: HEMATOCRIT. 42.5 % (36.0-48.0); HEMOGLOBIN. 13.6 g/dL (12.0-16.0); MEAN CORPUSCULAR HEMOGLOBIN 27.1 pg (28.0-32.0); MEAN CORPUSCULAR VOLUME 84.6 fL (81.0-99.0); MEAN PLATELET VOLUME 11.2 fl (7.4-10.4); PLATELET 165 x1000/uL (130-400); RED BLOOD CELL COUNT 5.02 mill/uL (4.2-5.4); RED CELL DISTRIBUTION WIDTH 16.8 % (11.6-14.6)
[2021-04-21 06:12] LABS: PHOSPHORUS 4.9 mg/dL (2.5-4.9)
[2021-04-21] MEDS ORDERED: DEXTROSE 5% WATER 1,000 ML IV SCH (07:00)
[2021-04-21 07:55] LABS: BG BASE EXCESS -1.2 mmol/L (-2.0-2.0); BG CARBOXYHEMOGLOBIN 0.3 % (0.5-1.5); BG HCO3 ACT 22.7 mmol/L (22.0-26.0); BG METHEMOGLOBIN 0.1 % (0.0-1.5); BG OXYHEMOGLOBIN 90.6 % (94.0-97.0); BG PCO2 35.9 mmHg (35.0-45.0); BG PH 7.419 (7.350-7.450); BG PO2 63.7 mmHg (75.0-100.0); BG SAMPLE SITE RIGHT RADIAL; BG TOTAL HEMOGLOBIN 14.7 g/dL (12.0-18.0); BG VENT MODE VENT - AC
[2021-04-21] MEDS: ENOXAPARIN 150MG/ML SYR SUBCUT SCH ×2 (09:17→21:59)
[2021-04-21] MEDS: PANTOPRAZOLE SODIUM 40 MG/VIAL IV SCH ×2 (09:17→21:59)
[2021-04-21] MEDS: DOCUSATE SODIUM SUGAR FREE 100MG/10ML UDC NG SCH ×2 (09:17→17:00)
[2021-04-21 09:19] LABS: PLATELET ESTIMATE NORMAL
[2021-04-21] MEDS ORDERED: METOCLOPRAMIDE HCL 10MG/2ML VIAL IV SCH ×2 (12:00→18:00)
[2021-04-21] MEDS ORDERED: MEROPENEM 2,000 MG in SODIUM CHLORIDE 0.9% 100 ML IV SCH ×2 (14:00→22:00)
[2021-04-21] MEDS: MICAFUNGIN 150 MG in SODIUM CHLORIDE 0.9% 100 ML IV SCH (17:00)
[2021-04-21] MEDS: ACETAMINOPHEN 650MG/20.3ML UDC PO PRN (17:00)
[2021-04-22] MEDS ORDERED: INSULIN LISPRO 100 UNITS/ML SUBCUT SCH
[2021-04-22] MEDS ORDERED: EPINEPHRINE 0.1MG/ML (1:10,000) 10ML SYR ONE (09:08)
[2021-04-22] MEDS ORDERED: CALCIUM CHLORIDE 1GM/10ML SYR IV ONE (09:08)
[2021-04-22] MEDS ORDERED: AMIODARONE HCL 50MG/ML 3ML VIAL IV ONE (09:08)
[2021-04-22] MEDS ORDERED: SODIUM BICARBONATE 8.4% 1 MEQ/ML 50ML SYR IV ONE (09:08)
[2021-04-22] MEDS ORDERED: MAGNESIUM SULFATE 4G IN WATER 100ML PREMIX IV ONE (09:08)
== END 2021-04-22 00:17 | DRG 4 ==
LOC: ER 19:16 → 7WST 20:10 → EDBEDREQTM 20:12 → EDBEDREQ 20:12 → ENRESERV 23:02 → 6WST 03-29 01:13 → CVICU 03-29 09:23 → 5EST 04-15 00:19 → MICUSO 04-19 22:35 → 5EST 04-21 20:10 → MICUSO 04-21 23:50
PROVIDERS: ADMIT Internal Medicine; ATTEND Internal Medicine
PROC: 5A1955Z Respiratory Ventilation, Greater than 96 Consecutive Hours (ICD-10-PCS; principal; 2021-03-29)
PROC: 05HY33Z Insertion of Infusion Device into Upper Vein, Percutaneous Approach (ICD-10-PCS; 2021-03-29)
PROC: B54MZZA Ultrasonography of Right Upper Extremity Veins, Guidance (ICD-10-PCS; 2021-03-29)
PROC: 5A09357 Assistance with Respiratory Ventilation, Less than 24 Consecutive Hours, Continuous Positive Airway Pressure (ICD-10-PCS; 2021-03-29)
PROC: 0BH17EZ Insertion of Endotracheal Airway into Trachea, Via Natural or Artificial Opening (ICD-10-PCS; 2021-03-29)
PROC: 0B110F4 Bypass Trachea to Cutaneous with Tracheostomy Device, Open Approach (ICD-10-PCS; 2021-04-10)
PROC: 0GBJ0ZZ Excision of Thyroid Gland Isthmus, Open Approach (ICD-10-PCS; 2021-04-10)
PROC: 0DH63UZ Insertion of Feeding Device into Stomach, Percutaneous Approach (ICD-10-PCS; 2021-04-18)
PROC: 5A12012 Performance of Cardiac Output, Single, Manual (ICD-10-PCS; 2021-04-22)
DX: A41.9 Sepsis, unspecified organism (principal); I26.99 Other pulmonary embolism without acute cor pulmonale; R57.9 Shock, unspecified; I63.9 Cerebral infarction, unspecified; J18.9 Pneumonia, unspecified organism; E46 Unspecified protein-calorie malnutrition; G93.1 Anoxic brain damage, not elsewhere classified; E87.3 Alkalosis; J96.02 Acute respiratory failure with hypercapnia; I27.29 Other secondary pulmonary hypertension; I82.B11 Acute embolism and thrombosis of right subclavian vein; G93.41 Metabolic encephalopathy; I50.33 Acute on chronic diastolic (congestive) heart failure; N17.9 Acute kidney failure, unspecified; L89.816 Pressure-induced deep tissue damage of head; L89.896 Pressure-induced deep tissue damage of other site; Z99.11 Dependence on respirator [ventilator] status; N18.6 End stage renal disease; E87.0 Hyperosmolality and hypernatremia; I42.9 Cardiomyopathy, unspecified; D75.1 Secondary polycythemia; E66.2 Morbid (severe) obesity with alveolar hypoventilation; I27.81 Cor pulmonale (chronic); J44.1 Chronic obstructive pulmonary disease with (acute) exacerbation; F17.210 Nicotine dependence, cigarettes, uncomplicated; I46.9 Cardiac arrest, cause unspecified; J44.0 Chronic obstructive pulmonary disease with (acute) lower respiratory infection; D64.9 Anemia, unspecified; E86.1 Hypovolemia; S80.821A Blister (nonthermal), right lower leg, initial encounter; X58.XXXA Exposure to other specified factors, initial encounter; K29.70 Gastritis, unspecified, without bleeding; D69.6 Thrombocytopenia, unspecified; I45.10 Unspecified right bundle-branch block; I48.91 Unspecified atrial fibrillation; R13.10 Dysphagia, unspecified; I49.01 Ventricular fibrillation; Z20.822 Contact with and (suspected) exposure to COVID-19; N39.0 Urinary tract infection, site not specified; E11.22 Type 2 diabetes mellitus with diabetic chronic kidney disease; Z68.43 Body mass index [BMI] 50.0-59.9, adult; I13.2 Hypertensive heart and chronic kidney disease with heart failure and with stage 5 chronic kidney disease, or end stage renal disease; Z79.899 Other long term (current) drug therapy; Z79.84 Long term (current) use of oral hypoglycemic drugs; Z90.49 Acquired absence of other specified parts of digestive tract; Z71.6 Tobacco abuse counseling; Z86.711 Personal history of pulmonary embolism; Z82.49 Family history of ischemic heart disease and other diseases of the circulatory system; Z83.3 Family history of diabetes mellitus; Z87.01 Personal history of pneumonia (recurrent); Y93.89 Activity, other specified; Y92.89 Other specified places as the place of occurrence of the external cause; Y99.8 Other external cause status; B96.89 Other specified bacterial agents as the cause of diseases classified elsewhere; N76.0 Acute vaginitis
CPT/HCPCS: 31500; 36415; 36600; 71045; 71250; 71275; 74018; 76770; 76937; 80048; 80053; 80061; 80202; 80305; 81003; 82040; 82140; 82375; 82805; 82962; 83036; 83735; 83880; 83935; 84100; 84134; 84145; 84478; 84484; 85025; 86850; 86900; 87070; 87077; 87106; 87186; 87426; 92950; 93005; 93306; 93923; 93970; 93971; 94002; 94003; 94640; 94660; 97162; 97530; 99285; C1725; C1893; C9113; J0282; J0690; J0692; J1200; J1450; J1650; J1815; J1940; J2060; J2185; J2248; J2250; J2270; J2370; J2704; J2765; J2920; J2930; J2997; J3010; J3370; J3475; J3490; J7050; J7060; J7070; J7512; J7608; J7626; U0003; U0005; A4315